=== PATIENT | female | born 1940 | race Caucasian/White ===

== ENCOUNTER 2016-10-11 12:14 | Outpatient (CLI) | payer MEDICARE, OTHER ==
--- NOTE | 2016-10-11 13:36 | Mammography Report ---
DIGITAL DIAGNOSTIC LEFT MAMMOGRAM: 10/11/2016 CLINICAL INDICATION: Possible developing density on screening. TECHNIQUE: Left true lateral and spot compression views. COMPARISON: 09/21/2016, 03/24/2015, 09/21/2012, 08/07/2011, 07/09/2010, 03/03/2009. FINDINGS: The left breast again demonstrates scattered fibroglandular densities. The density in que stion, in the left upper central breast, dissipates evenly on additional compression. No underlying mass lesion or architectural distortion is identified. IMPRESSION: NEGATIVE EXAMINATION. RECOMMENDATION: Routine annual screening unless otherwise clinically indicated. BI-RADS category 1, negative. STANDARD QUALIFYING STATEMENTS 1. This examination was reviewed with the aid of Computer-Aided Detection (CAD). 2. A negative or benign imaging report should not delay biopsy if clinically suspicious findings are present. Consider surgical consultation if warranted. More than 5% of cancers are not identified by i maging. 3. Dense breasts may obscure an underlying neoplasm. JOB #: [id number] EXT JOB #:[id number]
== END 2016-10-11 12:15 | disposition home or self-care (01) ==
LOC: DI 12:14
PROVIDERS: ATTEND Physician Assistant Medical
DX: R92.2 Inconclusive mammogram (principal)

== ENCOUNTER 2017-03-03 07:51 | Outpatient (CLI) | payer MEDICARE, OTHER ==
[2017-03-03 08:47] LABS: ALBUMIN/GLOBULIN RATIO 1.6 (1.0-2.2); BILIRUBIN,TOTAL 0.6 mg/dL (0.2-1.0); BUN - BLOOD UREA NITROGEN 16 mg/dL (6-20); CALCIUM 9.1 mg/dL (8.5-10.3); CARBON DIOXIDE - CO2 28 mmol/L (21-32); CHLORIDE 96 mmol/L (101-111); CHOL/HDL RATIO 2.6 (<4.4); CHOLESTEROL 191 mg/dL; CREATININE 0.7 mg/dL (0.4-1.0); GFR - MDRD 81 (>89); GLUCOSE 94 mg/dL (70-100); HDL CHOLESTEROL 74 mg/dL; LDL/HDL RATIO 1.4 (<4.4); POTASSIUM 3.8 mmol/L (3.5-5.0); SODIUM 132 mmol/L (135-145); TOTAL PROTEIN 7.2 g/dL (6.7-8.2); TRIGLYCERIDES 71 mg/dL; VLDL CHOLESTEROL 14 mg/dL
== END 2017-03-03 07:52 | disposition home or self-care (01) ==
LOC: LAB 07:51
PROVIDERS: ATTEND Physician Assistant Medical
DX: E78.5 Hyperlipidemia, unspecified (principal)
CPT/HCPCS: 36415; 80053; 80061

== ENCOUNTER 2018-03-14 07:36 | Outpatient (CLI) | payer MEDICARE, OTHER ==
[2018-03-14 07:55] LABS: BASOPHILS # (AUTO) 0.1 10^3/uL (0.0-0.1); BASOPHILS % (AUTO) 0.9 %; EOSINOPHILS # (AUTO) 0.3 10^3/uL (0.0-0.7); EOSINOPHILS % (AUTO) 5.2 %; HGB - HEMOGLOBIN 12.2 g/dL (12.0-16.0); LYMPHOCYTES # (AUTO) 1.2 10^3/uL (1.5-3.5); LYMPHOCYTES % (AUTO) 21.3 %; MEAN CORPUSCULAR HEMOGLOBIN 32.7 pg (27.0-31.0); MEAN CORPUSCULAR HGB CONC 34.1 g/dL (32.0-36.0); MEAN CORPUSCULAR VOLUME 95.9 fL (81.0-99.0); MEAN PLATELET VOLUME 8.9 fL (7.9-10.8); MONOCYTES # (AUTO) 0.4 10^3/uL (0.0-1.0); MONOCYTES % (AUTO) 7.6 %; NEUTROPHILS # (AUTO) 3.5 10^3/uL (1.5-6.6); PLT - PLATELET COUNT 203 10^3/uL (130-450); RED BLOOD COUNT 3.73 10^6/uL (4.20-5.40); RED CELL DISTRIBUTION WIDTH 12.5 % (12.0-15.0); WHITE BLOOD COUNT 5.4 x10^3/uL (4.8-10.8)
[2018-03-14 08:22] LABS: ALBUMIN 3.9 g/dL (3.2-5.5); ALBUMIN/GLOBULIN RATIO 1.3 (1.0-2.2); ALKALINE PHOSPHATASE 52 IU/L (42-121); ALT ALANINE AMINOTRANSFERASE 13 IU/L (10-60); AST ASPARTATE AMINOTRANSFERASE 19 IU/L (10-42); BILIRUBIN,TOTAL 0.5 mg/dL (0.2-1.0); BUN - BLOOD UREA NITROGEN 15 mg/dL (6-20); CALCIUM 8.8 mg/dL (8.5-10.3); CARBON DIOXIDE - CO2 27 mmol/L (21-32); CHLORIDE 95 mmol/L (101-111); CHOL/HDL RATIO 2.7 (<4.4); CHOLESTEROL 173 mg/dL; CREATININE 0.7 mg/dL (0.4-1.0); GFR - MDRD 81 (>89); GLUCOSE 95 mg/dL (70-100); HDL CHOLESTEROL 63 mg/dL; LDL CHOLESTEROL,CALCULATED 90 mg/dL; LDL/HDL RATIO 1.4 (<4.4); SODIUM 128 mmol/L (135-145); TOTAL PROTEIN 6.9 g/dL (6.7-8.2); VLDL CHOLESTEROL 20 mg/dL
== END 2018-03-14 07:37 | disposition home or self-care (01) ==
LOC: LAB 07:36
PROVIDERS: ATTEND Physician Assistant Medical
DX: E87.6 Hypokalemia (principal); E78.5 Hyperlipidemia, unspecified; I10 Essential (primary) hypertension
CPT/HCPCS: 36415; 80053; 80061; 83721; 85025

== ENCOUNTER 2018-04-06 14:55 | Outpatient (CLI) | payer MEDICARE, OTHER ==
--- NOTE | 2018-04-07 11:35 | DEXA Report ---
Procedure Date: 04/06/2018 Accession Number: [id number] / [id number] Procedure: DEX - Dexa Spine and/or Hip CPT Code: FULL RESULT: EXAM: Dexa Spine and/or Hip DATE: 04/06/2018 3:27 PM CLINICAL HISTORY: BONE DISEASE TECHNIQUE: Dual energy x-ray absorptiometry (DXA) was performed on a Dopplr System. Regions measured are the AP Spine, femoral neck, and if needed forearm. COMPARISON: None. In accordance with the International Society for Clinical Densitometry (ISCD) guidelines, data from previous exams may be reanalyzed using current recommendations and techniques. This is done to allow a more accurate basis for comparison with the current study. FINDINGS: The data for the lumbar spine is as follows: BMD (g/cm/cm) T-SCORE Z-SCORE REGION L1 1.072 -0.5 0.8 L2 1.137 -0.5 0.8 L3 1.150 -0.4 0.9 L4 1.220 0.2 1.5 TOTAL 1.152 -0.2 1.1 NOTE: All evaluable vertebrae are used for classification The data for the hip is as follows: BMD (g/cm/cm) T-SCORE Z-SCORE REGION Neck 0.826 -1.5 0.2 TOTAL 0.958 -0.4 1.2 NOTE: The femoral neck or total proximal femur, whichever is lowest, is used for classification. IMPRESSION: THE WHO CLASSIFICATION BASED ON THE INTERNATIONAL REFERENCE STANDARD IS NORMAL. THE FRACTURE RISK IS NOT INCREASED. RECOMMENDATION: Patients with diagnosis of osteoporosis or osteopenia should have regular bone mineral density assessment. For those eligible for Medicare, routine testing is allowed once every 2 years. Testing frequency can be increased for patients who have rapidly progressing disease or for those who are receiving medical therapy to restore bone mass. COMMENT: World Health Organization (WHO) definitions for osteoporosis and osteopenia: NORMAL BMD: T-score at -1.0 or higher, fracture risk is low OSTEOPENIA BMD: T-score between -1.0 and -2.5, fracture risk is increased. OSTEOPOROSIS BMD: T-score at -2.5 or lower, fracture risk is high. National Osteoporosis Foundation recommends: 1. Obtain adequate dietary calcium (at least 1200 mg per day) and vitamin D (400-800 international units per day). 2. Participate, as appropriate, in regular weightbearing and muscle-strengthening exercise. 3. Avoid tobacco use and reduce alcohol and caffeine intake. 4. For more detailed information see the website at www.NOF.org.
== END 2018-04-06 14:56 | disposition home or self-care (01) ==
LOC: DI 14:55
PROVIDERS: ATTEND Physician Assistant Medical
DX: M85.88 Other specified disorders of bone density and structure, other site (principal)
CPT/HCPCS: 77080

== ENCOUNTER 2018-04-06 14:56 | Outpatient (CLI) | payer MEDICARE, OTHER ==
--- NOTE | 2018-04-07 16:35 | Mammography Report ---
Procedure Date: 04/06/2018 Accession Number: [id number] / [id number] Procedure: KRISTINA - Screening Mammo Dig Bilat CPT Code: FULL RESULT: EXAM: Screening Mammo Dig Bilat DATE: 04/06/2018 3:30 PM CLINICAL HISTORY: 77-year-old female presents for screening mammogram. TECHNIQUE: Bilateral CC and MLO views were obtained. COMPARISON: 10/11/2016, 09/21/2016, 03/24/2015, 10/30/2013, 09/21/2012 FINDINGS: The breasts demonstrate scattered fibroglandular densities bilaterally. There are scattered benign calcifications. No suspicious masses, clustered microcalcifications, or regions of architectural distortion are identified. IMPRESSION: Benign findings RECOMMENDATION: Routine annual screening unless otherwise clinically indicated. BIRADS CATEGORY 2: Benign findings STANDARD QUALIFYING STATEMENTS: 1. This examination was reviewed with the aid of Computer-Aided Detection (CAD). 2. A negative or benign imaging report should not delay biopsy if clinically suspicious findings are present. Consider surgical consultation if warrented. More than 5% of cancers are not identified by imaging. 3. Dense breasts may obscure an underlying neoplasm.
== END 2018-04-06 14:57 | disposition home or self-care (01) ==
LOC: DI 14:56
PROVIDERS: ATTEND Physician Assistant Medical
DX: Z12.31 Encounter for screening mammogram for malignant neoplasm of breast (principal)
CPT/HCPCS: 77067

== ENCOUNTER 2019-03-23 07:40 | Outpatient (CLI) | payer MEDICARE, OTHER ==
[2019-03-23 08:16] LABS: BASOPHILS # (AUTO) 0.1 10^3/uL (0.0-0.1); BASOPHILS % (AUTO) 0.9 %; EOSINOPHILS # (AUTO) 0.2 10^3/uL (0.0-0.7); EOSINOPHILS % (AUTO) 3.7 %; HGB - HEMOGLOBIN 12.1 g/dL (12.0-16.0); LYMPHOCYTES # (AUTO) 1.1 10^3/uL (1.5-3.5); MEAN CORPUSCULAR HEMOGLOBIN 32.2 pg (27.0-31.0); MEAN CORPUSCULAR HGB CONC 34.1 g/dL (32.0-36.0); MEAN CORPUSCULAR VOLUME 94.4 fL (81.0-99.0); MONOCYTES # (AUTO) 0.5 10^3/uL (0.0-1.0); MONOCYTES % (AUTO) 8.2 %; NEUTROPHILS # (AUTO) 3.7 10^3/uL (1.5-6.6); NEUTROPHILS % (AUTO) 66.8 %; PLT - PLATELET COUNT 225 10^3/uL (130-450); RED BLOOD COUNT 3.76 10^6/uL (4.20-5.40); WHITE BLOOD COUNT 5.5 x10^3/uL (4.8-10.8)
[2019-03-23 08:43] LABS: ALBUMIN 4.3 g/dL (3.2-5.5); ALBUMIN/GLOBULIN RATIO 1.6 (1.0-2.2); ALKALINE PHOSPHATASE 56 IU/L (42-121); ALT ALANINE AMINOTRANSFERASE 12 IU/L (10-60); AST ASPARTATE AMINOTRANSFERASE 20 IU/L (10-42); BILIRUBIN,TOTAL 0.6 mg/dL (0.2-1.0); BUN - BLOOD UREA NITROGEN 16 mg/dL (6-20); CALCIUM 9.4 mg/dL (8.5-10.3); CARBON DIOXIDE - CO2 27 mmol/L (21-32); CHLORIDE 93 mmol/L (101-111); CHOLESTEROL 196 mg/dL; CREATININE 0.8 mg/dL (0.4-1.0); GFR - MDRD 69 (>89); GLUCOSE 103 mg/dL (70-100); HDL CHOLESTEROL 66 mg/dL; LDL CHOLESTEROL,CALCULATED 107 mg/dL; LDL/HDL RATIO 1.6 (<4.4); SODIUM 130 mmol/L (135-145); VLDL CHOLESTEROL 23 mg/dL
== END 2019-03-23 07:41 | disposition home or self-care (01) ==
LOC: LAB 07:40
PROVIDERS: ATTEND Physician Assistant Medical
DX: I10 Essential (primary) hypertension (principal); E78.5 Hyperlipidemia, unspecified
CPT/HCPCS: 36415; 80053; 80061; 83721; 85025

== ENCOUNTER 2019-04-11 10:10 | Outpatient (CLI) | payer MEDICARE, OTHER | END 2019-04-11 10:11 | disposition home or self-care (01) | LOC: DI 10:10 | PROVIDERS: ATTEND Physician Assistant Medical | DX: I48.91 Unspecified atrial fibrillation (principal); I08.1 Rheumatic disorders of both mitral and tricuspid valves; I11.9 Hypertensive heart disease without heart failure; I27.20 Pulmonary hypertension, unspecified | CPT/HCPCS: 93306 ==

== ENCOUNTER 2020-03-21 07:45 | Outpatient (CLI) | payer MEDICARE, OTHER ==
[2020-03-21 08:47] LABS: BASOPHILS # (AUTO) 0.1 10^3/uL (0.0-0.1); EOSINOPHILS # (AUTO) 0.2 10^3/uL (0.0-0.7); EOSINOPHILS % (AUTO) 3.4 %; HGB - HEMOGLOBIN 12.2 g/dL (12.0-16.0); LYMPHOCYTES % (AUTO) 20.3 %; MEAN CORPUSCULAR HEMOGLOBIN 32.3 pg (27.0-31.0); MEAN CORPUSCULAR HGB CONC 33.7 g/dL (32.0-36.0); MEAN CORPUSCULAR VOLUME 95.8 fL (81.0-99.0); MEAN PLATELET VOLUME 10.9 fL (7.9-10.8); MONOCYTES # (AUTO) 0.4 10^3/uL (0.0-1.0); NEUTROPHILS # (AUTO) 3.4 10^3/uL (1.5-6.6); NEUTROPHILS % (AUTO) 67.1 %; PLT - PLATELET COUNT 241 10^3/uL (130-450); RED BLOOD COUNT 3.78 10^6/uL (4.20-5.40); RED CELL DISTRIBUTION WIDTH 11.9 % (12.0-15.0)
[2020-03-21 09:01] LABS: ALBUMIN 4.4 g/dL (3.2-5.5); ALBUMIN/GLOBULIN RATIO 1.6 (1.0-2.2); ALKALINE PHOSPHATASE 58 IU/L (42-121); ALT ALANINE AMINOTRANSFERASE 16 IU/L (10-60); AST ASPARTATE AMINOTRANSFERASE 22 IU/L (10-42); BILIRUBIN,TOTAL 0.6 mg/dL (0.2-1.0); BUN - BLOOD UREA NITROGEN 15 mg/dL (6-20); CALCIUM 9.2 mg/dL (8.5-10.3); CARBON DIOXIDE - CO2 27 mmol/L (21-32); CHLORIDE 94 mmol/L (101-111); CHOL/HDL RATIO 2.4 (<4.4); CHOLESTEROL 184 mg/dL; CREATININE 0.9 mg/dL (0.4-1.0); GLUCOSE 101 mg/dL (70-100); HDL CHOLESTEROL 76 mg/dL; LDL CHOLESTEROL,CALCULATED 93 mg/dL; LDL/HDL RATIO 1.2 (<4.4); SODIUM 131 mmol/L (135-145); TOTAL PROTEIN 7.1 g/dL (6.7-8.2); VLDL CHOLESTEROL 15 mg/dL
== END 2020-03-21 07:46 | disposition home or self-care (01) ==
LOC: LAB 07:45
PROVIDERS: ATTEND Family Medicine
DX: I48.91 Unspecified atrial fibrillation (principal); E78.5 Hyperlipidemia, unspecified; M85.80 Other specified disorders of bone density and structure, unspecified site
CPT/HCPCS: 36415; 80053; 80061; 83721; 84443; 85025

== ENCOUNTER 2020-09-23 06:05 | Emergency (ER) | payer MEDICARE, OTHER ==
--- NOTE | 2020-09-23 07:00 | ED Physician Documentation ---
PD HPI SYNCOPE - Stated complaint Stated Complaint: NAUSEA, LOW BLOOD PRESSURE - Chief complaint Chief Complaint: General - History obtained from History obtained from: Patient - History of Present Illness Timing - onset: Today Duration: Seconds, Minutes Preceding symptoms: Abdominal pain, Nausea / vomiting, Light headed, Generalized weakness. No: Headache, Palpitations, Dyspnea Associated symptoms: Nausea / vomiting, Abdominal pain (she was eating breakfast and noted onset of lower abd cramp, had some nasuea and single diarrheal movement. [place] lightheaded briefly then better. Her encouiraged her to get evaluated to ensure not heart related.) Contributing factors: Noxious stimulae (abd cramp and nausea). No: Recent med change, Decreased PO intake Injury occurred: No: Fell, Head injury, Neck injury Review of Systems Constitutional: denies: Fever, Chills Nose: denies: Rhinorrhea / runny nose, Congestion Throat: denies: Sore throat Cardiac: denies: Chest pain / pressure, Palpitations Respiratory: denies: Dyspnea, Cough GI: denies: Hematemesis, Bloody / black stool Musculoskeletal: denies: Neck pain, Back pain, Extremity swelling Neurologic: reports: Generalized weakness, Near syncope. 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 HEENT: Chronic hearing loss Psych: None Musculoskeletal: None Derm: None - Past Surgical History Past Surgical History: No - Present Medications Home Medications: Ambulatory Orders Medication Instructions Recorded Confirmed Apixaban [Eliquis] 09/23/20 Hydrochlorothiazide 09/23/20 09/23/20 Lisinopril [Zestril] 09/23/20 Simvastatin [Zocor] 09/23/20 diltiaZEM [Cardizem] 09/23/20 - Allergies Allergies/Adverse Reactions: Allergies Allergy/AdvReac Type Severity Reaction Status Date / Time telmisartan [From Micardis] Allergy Unknown Verified 09/23/20 08:20 - Social History Does the pt smoke?: No Smoking Status: Never smoker Does the pt drink ETOH?: Yes Does the pt have substance abuse?: No - Immunizations Immunizations are current?: Yes PD ED PE NORMAL - Vitals Vital signs reviewed: Yes - General General: Alert and oriented X 3, No acute distress, Well developed/nourished - HEENT HEENT: Moist mucous membranes, Pharynx benign - Neck Neck: Supple, no meningeal sign, No adenopathy - Cardiac Cardiac: RRR, No murmur - Respiratory Respiratory: Clear bilaterally - Abdomen Abdomen: Normal bowel sounds, Soft, Non tender, Non distended - Derm Derm: Normal color, Warm and dry - Extremities Extremities: No tenderness to palpate, Normal ROM s pain, No edema, No calf tenderness / cord - Neuro Neuro: Alert and oriented X 3, No motor deficit, Normal speech Eye Opening: Spontaneous Motor: Obeys Commands Verbal: Oriented GCS Score: 15 Results - Vitals Vitals: Vital Signs - 24 hr 09/23/20 09/23/20 09/23/20 06:11 06:50 07:45 Temperature 36.5 C 36.5 C Heart Rate 70 69 66 Respiratory 16 19 14 Rate Blood Pressure 147/65 H 152/63 H 140/60 H O2 Saturation 100 100 100 Oxygen O2 Source Room air - EKG (time done) 06:38 Rate: Rate (enter#) (64) Rhythm: NSR [place]: Normal Intervals: Normal [place] QRS: Normal Ischemia: Normal ST segments, Other (PVCs noted). No: ST elevation c/w ischemia, ST depression - Labs Labs: Laboratory Tests 09/23/20 09/23/20 09/23/20 06:46 06:46 06:46 WBC 7.3 RBC 3.82 L Hgb 12.4 Hct 37.9 MCV 99.2 H MCH 32.5 H MCHC 32.7 RDW 11.9 L Plt Count 235 MPV 10.8 Neut # (Auto) 5.6 Lymph # (Auto) 0.9 L [place] # (Auto) 0.5 Eos # (Auto) 0.2 Baso # (Auto) 0.1 Absolute Nucleated RBC 0.00 Nucleated RBC % 0.0 Sodium 132 L Potassium 3.9 Chloride 97 L Carbon Dioxide 23 Anion Gap 12.0 BUN 26 H Creatinine 1.1 H Estimated GFR (MDRD) 48 L Glucose 114 H Calcium 9.2 Troponin I High Sens 6.1 PD MEDICAL DECISION MAKING - ED course Complexity details: considered differential (sounds vasovagal from intestinal symptoms. Improved promptly and feels okay now with normal ECG and Trop. ), d/w patient Departure - Departure Disposition: 01 Home, Self Care Clinical Impression: Near syncope Condition: Stable Record reviewed to determine appropriate education?: Yes Instructions: ED Near Syncope Vasovagal Follow-Up: Pauline Quiroz PA-C [Primary Care Provider] - Comments: Your EKG and heart monitor and basic blood tests appear normal. I presume you had a transient drop in your blood pressure related to the nausea and abdominal cramps/diarrhea. You seem well at this time. Recheck if repeated episodes or any further symptoms develop. Discharge Date/Time: 09/23/20 07:50
[2020-09-23 07:15] LABS: CALCIUM 9.2 mg/dL (8.5-10.3); CREATININE 1.1 mg/dL (0.4-1.0); POTASSIUM 3.9 mmol/L (3.5-5.0)
[2020-09-23 07:18] LABS: BASOPHILS # (AUTO) 0.1 10^3/uL (0.0-0.1); BASOPHILS % (AUTO) 0.8 %; EOSINOPHILS # (AUTO) 0.2 10^3/uL (0.0-0.7); EOSINOPHILS % (AUTO) 3.1 %; HCT - HEMATOCRIT 37.9 % (37.0-47.0); HGB - HEMOGLOBIN 12.4 g/dL (12.0-16.0); LYMPHOCYTES # (AUTO) 0.9 10^3/uL (1.5-3.5); LYMPHOCYTES % (AUTO) 11.6 %; MEAN CORPUSCULAR HEMOGLOBIN 32.5 pg (27.0-31.0); MEAN CORPUSCULAR HGB CONC 32.7 g/dL (32.0-36.0); MEAN CORPUSCULAR VOLUME 99.2 fL (81.0-99.0); MEAN PLATELET VOLUME 10.8 fL (7.9-10.8); MONOCYTES # (AUTO) 0.5 10^3/uL (0.0-1.0); MONOCYTES % (AUTO) 7.2 %; NEUTROPHILS # (AUTO) 5.6 10^3/uL (1.5-6.6); NEUTROPHILS % (AUTO) 76.9 %; PLT - PLATELET COUNT 235 10^3/uL (130-450); RED BLOOD COUNT 3.82 10^6/uL (4.20-5.40); RED CELL DISTRIBUTION WIDTH 11.9 % (12.0-15.0); WHITE BLOOD COUNT 7.3 x10^3/uL (4.8-10.8)
[2020-09-23 07:45] VITALS: BP 140/60
== END 2020-09-23 07:50 | disposition home or self-care (01) ==
LOC: ED 06:05
DX: R55 Syncope and collapse (principal); R11.2 Nausea with vomiting, unspecified; R19.7 Diarrhea, unspecified; I49.3 Ventricular premature depolarization; I10 Essential (primary) hypertension; Z79.01 Long term (current) use of anticoagulants
CPT/HCPCS: 36415; 80048; 84484; 85025; 93005; 99284

== ENCOUNTER 2020-09-30 15:09 | Outpatient (CLI) | payer MEDICARE, OTHER ==
[2020-09-30 18:57] LABS: BASOPHILS # (AUTO) 0.1 10^3/uL (0.0-0.1); BASOPHILS % (AUTO) 0.9 %; EOSINOPHILS # (AUTO) 0.1 10^3/uL (0.0-0.7); EOSINOPHILS % (AUTO) 1.9 %; LYMPHOCYTES # (AUTO) 1.2 10^3/uL (1.5-3.5); LYMPHOCYTES % (AUTO) 17.7 %; MEAN CORPUSCULAR HEMOGLOBIN 32.1 pg (27.0-31.0); MEAN CORPUSCULAR HGB CONC 32.8 g/dL (32.0-36.0); MEAN CORPUSCULAR VOLUME 97.9 fL (81.0-99.0); MEAN PLATELET VOLUME 11.1 fL (7.9-10.8); MONOCYTES # (AUTO) 0.5 10^3/uL (0.0-1.0); NEUTROPHILS # (AUTO) 4.8 10^3/uL (1.5-6.6); NEUTROPHILS % (AUTO) 71.2 %; PLT - PLATELET COUNT 260 10^3/uL (130-450); RED BLOOD COUNT 3.74 10^6/uL (4.20-5.40); WHITE BLOOD COUNT 6.8 x10^3/uL (4.8-10.8)
[2020-09-30 19:21] LABS: ALBUMIN 4.8 g/dL (3.2-5.5); ALBUMIN/GLOBULIN RATIO 1.5 (1.0-2.2); BILIRUBIN,TOTAL 0.4 mg/dL (0.2-1.0); CALCIUM 9.8 mg/dL (8.5-10.3); CREATININE 0.8 mg/dL (0.4-1.0); TOTAL PROTEIN 7.9 g/dL (6.7-8.2)
== END 2020-09-30 23:59 | disposition home or self-care (01) ==
LOC: LAB.WCP 15:09
PROVIDERS: ATTEND Family Medicine
DX: I10 Essential (primary) hypertension (principal); K62.5 Hemorrhage of anus and rectum
CPT/HCPCS: 36415; 80053; 85025

== ENCOUNTER 2021-03-20 07:33 | Outpatient (CLI) | payer MEDICARE, OTHER ==
[2021-03-20 08:15] LABS: CHOL/HDL RATIO 2.8 (<4.4); CHOLESTEROL 198 mg/dL; HDL CHOLESTEROL 70 mg/dL; LDL CHOLESTEROL,CALCULATED 105 mg/dL; LDL/HDL RATIO 1.5 (<4.4); TRIGLYCERIDES 114 mg/dL; VLDL CHOLESTEROL 23 mg/dL
== END 2021-03-20 07:34 | disposition home or self-care (01) ==
LOC: LAB 07:33
PROVIDERS: ATTEND Nurse Practitioner Family
DX: E78.5 Hyperlipidemia, unspecified (principal)
CPT/HCPCS: 36415; 80061; 83721

== ENCOUNTER 2021-04-01 07:46 | Outpatient (CLI) | payer MEDICARE, OTHER ==
[2021-04-01 08:01] LABS: BASOPHILS # (AUTO) 0.1 10^3/uL (0.0-0.1); BASOPHILS % (AUTO) 0.8 %; EOSINOPHILS # (AUTO) 0.2 10^3/uL (0.0-0.7); EOSINOPHILS % (AUTO) 3.5 %; HCT - HEMATOCRIT 35.5 % (37.0-47.0); HGB - HEMOGLOBIN 12.2 g/dL (12.0-16.0); LYMPHOCYTES # (AUTO) 1.1 10^3/uL (1.5-3.5); LYMPHOCYTES % (AUTO) 18.1 %; MEAN CORPUSCULAR HEMOGLOBIN 32.4 pg (27.0-31.0); MEAN CORPUSCULAR HGB CONC 34.4 g/dL (32.0-36.0); MEAN CORPUSCULAR VOLUME 94.2 fL (81.0-99.0); MEAN PLATELET VOLUME 10.5 fL (7.9-10.8); MONOCYTES # (AUTO) 0.6 10^3/uL (0.0-1.0); MONOCYTES % (AUTO) 9.5 %; NEUTROPHILS # (AUTO) 4.1 10^3/uL (1.5-6.6); NEUTROPHILS % (AUTO) 67.9 %; PLT - PLATELET COUNT 225 10^3/uL (130-450); RED BLOOD COUNT 3.77 10^6/uL (4.20-5.40); RED CELL DISTRIBUTION WIDTH 11.9 % (12.0-15.0)
[2021-04-01 08:15] LABS: ALBUMIN 4.5 g/dL (3.2-5.5); ALBUMIN/GLOBULIN RATIO 1.5 (1.0-2.2); BILIRUBIN,TOTAL 0.8 mg/dL (0.2-1.0); CALCIUM 9.4 mg/dL (8.5-10.3); CREATININE 0.8 mg/dL (0.4-1.0); POTASSIUM 4.4 mmol/L (3.5-5.0); TOTAL PROTEIN 7.5 g/dL (6.7-8.2)
[2021-04-01 08:32] LABS: THYROID STIMULATING HORMONE 3.32 uIU/mL (0.34-5.60)
== END 2021-04-01 07:47 | disposition home or self-care (01) ==
LOC: LAB 07:46
PROVIDERS: ATTEND Physician Assistant Medical
DX: I48.91 Unspecified atrial fibrillation (principal); I10 Essential (primary) hypertension
CPT/HCPCS: 36415; 80053; 82306; 82607; 84443; 85025

== ENCOUNTER 2021-07-29 07:44 | Outpatient (CLI) | payer MEDICARE, OTHER | END 2021-07-29 07:45 | disposition critical access hospital (66) | LOC: EMS 07:44 | DX: R42 Dizziness and giddiness (principal); M25.531 Pain in right wrist; W18.39XA Other fall on same level, initial encounter; Y93.E1 Activity, personal bathing and showering; Y92.002 Bathroom of unspecified non-institutional (private) residence as the place of occurrence of the external cause | CPT/HCPCS: A0425; A0429 ==

== ENCOUNTER 2021-07-29 07:53 | Emergency (ER) | payer MEDICARE, OTHER ==
--- NOTE | 2021-07-29 08:54 | XRAY Report ---
PROCEDURE: Wrist 3 View RT INDICATIONS: fall/injury TECHNIQUE: 3 views of the wrist were acquired. COMPARISON: No FINDINGS: Bones: Impacted, minimally displaced, transverse fracture across the distal radial metaphysis. There may be extension to the articular surface. Small ulnar styloid fracture fragment. Widening of the sca pholunate interval.. Arthritic joint space loss at the radiocarpal articulation. Arthritic changes in cidentally noted at the second MCP joint. No suspicious bony lesions. Scaphoid view: Not performed Soft tissues: No suspicious soft tissue calcifications. IMPRESSION: Mildly impacted, minimally displaced transverse distal radius fracture with intra-articular extension . Slight scapholunate interval widening suggesting scapholunate ligament injury. Small ulnar styloid fracture. Reviewed by: Jolie Rich MD on 07/29/2021 8:53 AM PDT Approved by: Jolie Rich MD on 07/29/2021 8:53 AM PDT Station ID: [id number]
[2021-07-29] MEDS ORDERED: SODIUM CHLORIDE 0.9% 1,000 ML IV STA (09:26)
--- NOTE | 2021-07-29 11:11 | ED Physician Documentation ---
History of Present Illness - Stated complaint Stated Complaint: NEAR SYNCOPE - Chief complaint Chief Complaint: Neuro - History obtained from History obtained from: Patient, EMS - Additonal information Additional information: Patient comes emergency department chief complaint of near syncope and fall. Patient states that she has not been sleeping very well lately and has not had enough to drink in the last couple of days. She states that while she was in the shower, she began to feel a little bit lightheaded, so she turned up the shower and sun the end of the tub. She states the feeling of lightheadedness got stronger and stronger until she decided to get on the floor and lay down. She states she put her right hand out to catch herself as she scooted toward the floor, but slid off the edge of the tub and caught herself hard on the hand. She has some pain and swelling in it now., At the wrist. Patient states she felt better after laying on floor, but cannot get herself up because of the wrist. For this reason, she activated EMS. Patient denies chest pain or shortness of breath. She has a history of high blood pressure and that is it. She denies any other symptoms besides wrist pain and swelling now. No nausea or vomiting. No lightheadedness. No headache. No focal neurologic deficits. No spinal or hip pain. Patient did not hit her head or fully lose consciousness. Review of Systems Ten Systems: 10 systems reviewed and negative Constitutional: reports: Reviewed and negative Eyes: reports: Reviewed and negative Ears: reports: Reviewed and negative Nose: reports: Reviewed and negative Throat: reports: Reviewed and negative Cardiac: reports: Reviewed and negative Respiratory: reports: Reviewed and negative GI: reports: Reviewed and negative : reports: Reviewed and negative Skin: reports: Reviewed and negative Musculoskeletal: reports: Extremity pain, Joint pain Neurologic: reports: Reviewed and negative Psychiatric: reports: Reviewed and negative Endocrine: reports: Reviewed and negative Immunocompromised: reports: Reviewed and negative PD PAST MEDICAL HISTORY - Past Medical History Past Medical History: Yes Cardiovascular: Hypertension, High cholesterol, Atrial fibrillation Respiratory: None Neuro: None Endocrine/Autoimmune: None GI: None 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 HEENT: Chronic hearing loss Psych: None Musculoskeletal: None Derm: None - Past Surgical History Past Surgical History: No - Present Medications Home Medications: Ambulatory Orders Medication Instructions Recorded Confirmed Apixaban [Eliquis] 1 tab ORAL BID 09/23/20 Lisinopril [Zestril] 1 tablet ORAL DAILY 09/23/20 Simvastatin [Zocor] 1 tablet ORAL DAILY 09/23/20 diltiaZEM [Cardizem] 1 tablet ORAL DAILY 09/23/20 hydroCHLOROthiazide 1 tablet ORAL DAILY 09/23/20 09/23/20 [Hydrochlorothiazide] HYDROcod/ACETAM 5/325 [[place] 5/325] 1 - 2 tablet PO Q6H PRN #14 tablet 07/29/21 Ondansetron Odt [Zofran] 4 mg TL Q6H PRN #10 tablet 07/29/21 - Allergies Allergies/Adverse Reactions: Allergies Allergy/AdvReac Type Severity Reaction Status Date / Time telmisartan [From Micardis] Allergy Unknown Verified 07/29/21 08:05 - Social History Does the pt smoke?: No Smoking Status: Never smoker Does the pt drink ETOH?: Yes Does the pt have substance abuse?: No - Immunizations Immunizations are current?: Yes PD ED PE NORMAL - Vitals Vital signs reviewed: Yes - General General: Alert and oriented X 3, No acute distress, Well developed/nourished - HEENT HEENT: Atraumatic, PERRL, EOMI, Moist mucous membranes - Neck Neck: Supple, no meningeal sign, No bony TTP - Cardiac Cardiac: RRR, No murmur, Strong equal pulses - Respiratory Respiratory: No respiratory distress, Clear bilaterally - Abdomen Abdomen: Soft, Non tender, Non distended - Back Back: No spinal TTP - Derm Derm: Normal color, Warm and dry, No rash - Extremities Extremities: No deformity, Other (Moderate edema over radial aspect of right wrist. Tenderness palpation with mildly limited range of motion secondary to pain. No deformity.) - Neuro Neuro: Alert and oriented X 3, assistant account manager 2-12 intact, No motor deficit, No sensory deficit, Normal speech - Psych Psych: Normal mood, Normal affect Results - Vitals Vitals: Oxygen O2 Source Room air - Rads (name of study) R wrist XR Radiology: Final report received, EMP read indepedently, See rad report PD MEDICAL DECISION MAKING - ED course Complexity details: reviewed results, re-evaluated patient, considered differential, d/w patient ED course: Patient was worked up with labs and EKG, which were unremarkable. Her x-ray of the right wrist showed an intracuticular distal radial fracture with minimal displacement. Patient was placed in a sugar tong splint. I attempted to get a hold of Dr. Vargas while the patient was in the emergency department, but he was stuck in a long OR case. Plan will be to talk to him About the patient and have his office set up follow-up with her. Update: I was able to speak with Dr. Vargas after pt's departure, and he will have his office call her and set up a follow-up appt. He was able to view her x-rays while we spoke. Departure - Departure Disposition: 01 Home, Self Care Clinical Impression: Near syncope Distal radius fracture, right Qualifiers: Encounter type: initial encounter Fracture type: closed Fracture morphology: unspecified fracture morphology Qualified Code(s): S52.501A - Unspecified fracture of the lower end of right radius, initial encounter for closed fracture Condition: Stable Instructions: Distal Radius Fx Follow-Up: Jose Vargas MD [Provider Admit Priv/Credential] - Prescriptions: HYDROcod/ACETAM 5/325 [[place] 5/325] 1 - 2 tablet PO Q6H PRN #14 tablet PRN Reason: Pain Ondansetron Odt [Zofran] 4 mg TL Q6H PRN #10 tablet PRN Reason: Nausea / Vomiting Comments: Your x-ray shows Some cracks in the radius bone of the right forearm at the wrist joint. You will need to follow-up with orthopedics fairly soon to determine whether this needs surgical repair, which most likely will. It is fairly well aligned at this point, and for now, we have immobilized your forearm with the splint. Please call Dr. Vargas's office first thing when you get home to set up a follow-up appointment. He has been in a long operating room case and unable to discuss your case yet but as soon as he is done, I will speak with him and have him touch base with his office so you can be seen soon. A prescription for pain and nausea medication has been transmitted electronically to [facility] in [place]. You may fill this to help with the pain. If your pain is not very bad, you are also free to use ibuprofen and Tylenol instead. Please keep the splint on until you follow-up with orthopedics. Discharge Date/Time: 07/29/21 11:36
[2021-07-29 11:36] VITALS: BP 148/64
== END 2021-07-29 11:36 | disposition home or self-care (01) ==
LOC: EDUNIT# → ED 07:53
DX: S52.571A Other intraarticular fracture of lower end of right radius, initial encounter for closed fracture (principal); W18.2XXA Fall in (into) shower or empty bathtub, initial encounter; I10 Essential (primary) hypertension; I48.91 Unspecified atrial fibrillation; Z79.01 Long term (current) use of anticoagulants
CPT/HCPCS: 99282; 99283

== ENCOUNTER 2021-09-15 13:30 | Outpatient (CLI) | payer MEDICARE, OTHER ==
--- NOTE | 2021-09-15 17:26 | XRAY Report ---
PROCEDURE: Wrist 3 View RT INDICATIONS: COLLES FX OF R RADIUS TECHNIQUE: 3 views of the wrist were acquired. COMPARISON: X-ray right wrist, 07/29/2021. FINDINGS: Bones: There is a comminuted fracturing of distal radial metaphysis with impaction. Mild widening of scapholunate interval appears unchanged. Ulnar styloid fracture is present. There are multiple small intra-articular bodies at the radiocarpal joint. Suspect old radial styloid fracture. No suspicious bony lesions. Moderate degenerative joint disease at the radiocarpal joint, triscaphe joint and firs t carpometacarpal joint. Soft tissues: No suspicious soft tissue calcifications. IMPRESSION: 1. Comminuted distal radial metaphyseal fracture with impaction. The alignment is unchanged. 2. Mild widening of scapholunate interval suspicious for ligamentous injuries. 3. Ulnar styloid fracture. Reviewed by: Aminta Villeda MD on 09/15/2021 5:25 PM PST Approved by: Aminta Vilelda MD on 09/15/2021 5:25 PM PST Station ID: [id number]
== END 2021-09-15 23:59 | disposition home or self-care (01) ==
LOC: DI.N 13:30
PROVIDERS: ATTEND Physician Assistant
DX: S52.531A Colles' fracture of right radius, initial encounter for closed fracture (principal); S52.611A Displaced fracture of right ulna styloid process, initial encounter for closed fracture

== ENCOUNTER 2021-09-16 08:00 | Outpatient (CLI) | payer MEDICARE, OTHER ==
[2021-09-16 09:48] LABS: BASOPHILS # (AUTO) 0.1 10^3/uL (0.0-0.1); BASOPHILS % (AUTO) 0.9 %; EOSINOPHILS # (AUTO) 0.1 10^3/uL (0.0-0.7); EOSINOPHILS % (AUTO) 2.2 %; HCT - HEMATOCRIT 34.4 % (37.0-47.0); HGB - HEMOGLOBIN 11.4 g/dL (12.0-16.0); LYMPHOCYTES # (AUTO) 1.1 10^3/uL (1.5-3.5); LYMPHOCYTES % (AUTO) 17.9 %; MEAN CORPUSCULAR HEMOGLOBIN 32.5 pg (27.0-31.0); MEAN CORPUSCULAR HGB CONC 33.1 g/dL (32.0-36.0); MEAN PLATELET VOLUME 9.9 fL (7.9-10.8); MONOCYTES # (AUTO) 0.5 10^3/uL (0.0-1.0); MONOCYTES % (AUTO) 7.7 %; NEUTROPHILS # (AUTO) 4.5 10^3/uL (1.5-6.6); PLT - PLATELET COUNT 259 10^3/uL (130-450); RED BLOOD COUNT 3.51 10^6/uL (4.20-5.40); RED CELL DISTRIBUTION WIDTH 12.2 % (12.0-15.0); WHITE BLOOD COUNT 6.4 x10^3/uL (4.8-10.8)
[2021-09-16 09:58] LABS: ALBUMIN 4.5 g/dL (3.2-5.5); ALBUMIN/GLOBULIN RATIO 1.6 (1.0-2.2); BILIRUBIN,TOTAL 0.5 mg/dL (0.2-1.0); CALCIUM 9.3 mg/dL (8.5-10.3); CREATININE 0.8 mg/dL (0.4-1.0); POTASSIUM 3.8 mmol/L (3.5-5.0); TOTAL PROTEIN 7.4 g/dL (6.7-8.2)
[2021-09-16 10:15] LABS: THYROID STIMULATING HORMONE 2.51 uIU/mL (0.34-5.60)
== END 2021-09-16 23:59 ==
LOC: LAB 08:00
PROVIDERS: ATTEND Physician Assistant Medical
DX: I10 Essential (primary) hypertension (principal); Z79.899 Other long term (current) drug therapy
CPT/HCPCS: 36415; 80053; 84443; 85025

== ENCOUNTER 2021-10-22 09:56 | Outpatient (CLI) | payer MEDICARE, OTHER ==
[2021-10-22 10:11] LABS: BASOPHILS # (AUTO) 0.1 10^3/uL (0.0-0.1); BASOPHILS % (AUTO) 0.9 %; EOSINOPHILS # (AUTO) 0.2 10^3/uL (0.0-0.7); EOSINOPHILS % (AUTO) 3.1 %; HCT - HEMATOCRIT 36.8 % (37.0-47.0); HGB - HEMOGLOBIN 12.6 g/dL (12.0-16.0); LYMPHOCYTES % (AUTO) 14.3 %; MEAN CORPUSCULAR HEMOGLOBIN 33.1 pg (27.0-31.0); MEAN CORPUSCULAR HGB CONC 34.2 g/dL (32.0-36.0); MEAN CORPUSCULAR VOLUME 96.6 fL (81.0-99.0); MEAN PLATELET VOLUME 10.1 fL (7.9-10.8); MONOCYTES # (AUTO) 0.7 10^3/uL (0.0-1.0); MONOCYTES % (AUTO) 10.3 %; NEUTROPHILS # (AUTO) 4.8 10^3/uL (1.5-6.6); NEUTROPHILS % (AUTO) 71.1 %; PLT - PLATELET COUNT 242 10^3/uL (130-450); RED BLOOD COUNT 3.81 10^6/uL (4.20-5.40); RED CELL DISTRIBUTION WIDTH 11.9 % (12.0-15.0); WHITE BLOOD COUNT 6.7 x10^3/uL (4.8-10.8)
[2021-10-22 10:31] LABS: % IRON SATURATION 19 % (20-50); IRON 91 ug/dL (28-170); TOTAL IRON BINDING CAPACITY 472 ug/dL (250-450); TRANSFERRIN 337 mg/dL (192-382)
[2021-10-22 10:48] LABS: FERRITIN 25.2 ng/mL (11.0-306.8)
[2021-10-22 10:51] LABS: FOLATE 10.8 ng/mL (5.90 - >24.8)
== END 2021-10-22 09:57 | disposition home or self-care (01) ==
LOC: LAB 09:56
PROVIDERS: ATTEND Physician Assistant Medical
DX: D64.9 Anemia, unspecified (principal)
CPT/HCPCS: 36415; 82607; 82728; 82746; 83540; 84466; 85025

== ENCOUNTER 2022-01-20 09:17 | Outpatient (CLI) | payer MEDICARE, OTHER ==
[2022-01-20 09:29] LABS: BASOPHILS % (AUTO) 0.7 %; EOSINOPHILS # (AUTO) 0.2 10^3/uL (0.0-0.7); EOSINOPHILS % (AUTO) 2.7 %; HCT - HEMATOCRIT 32.9 % (37.0-47.0); HGB - HEMOGLOBIN 11.1 g/dL (12.0-16.0); LYMPHOCYTES # (AUTO) 1.1 10^3/uL (1.5-3.5); LYMPHOCYTES % (AUTO) 18.1 %; MEAN CORPUSCULAR HEMOGLOBIN 32.6 pg (27.0-31.0); MEAN CORPUSCULAR HGB CONC 33.7 g/dL (32.0-36.0); MEAN CORPUSCULAR VOLUME 96.5 fL (81.0-99.0); MEAN PLATELET VOLUME 10.1 fL (7.9-10.8); MONOCYTES # (AUTO) 0.6 10^3/uL (0.0-1.0); MONOCYTES % (AUTO) 10.4 %; NEUTROPHILS % (AUTO) 67.9 %; PLT - PLATELET COUNT 235 10^3/uL (130-450); RED BLOOD COUNT 3.41 10^6/uL (4.20-5.40); RED CELL DISTRIBUTION WIDTH 11.9 % (12.0-15.0); WHITE BLOOD COUNT 5.9 x10^3/uL (4.8-10.8)
[2022-01-20 10:08] LABS: % IRON SATURATION 18 % (20-50); IRON 77 ug/dL (28-170); TOTAL IRON BINDING CAPACITY 431 ug/dL (250-450); TRANSFERRIN 308 mg/dL (192-382)
== END 2022-01-20 09:18 | disposition home or self-care (01) ==
LOC: LAB 09:17
PROVIDERS: ATTEND Physician Assistant Medical
DX: D64.9 Anemia, unspecified (principal)
CPT/HCPCS: 36415; 83540; 84466; 85025

== ENCOUNTER 2022-01-29 08:00 | Outpatient (CLI) | payer MEDICARE, OTHER ==
[2022-01-29 18:13] LABS: FECAL OCCULT BLOOD (FIT) NEGATIVE (NEGATIVE)
== END 2022-01-29 23:59 | disposition home or self-care (01) ==
LOC: LAB.N 08:00
PROVIDERS: ATTEND Physician Assistant Medical
DX: D64.9 Anemia, unspecified (principal)
CPT/HCPCS: 82274

== ENCOUNTER 2022-03-16 07:51 | Outpatient (CLI) | payer MEDICARE, OTHER ==
[2022-03-16 08:12] LABS: BASOPHILS # (AUTO) 0.1 10^3/uL (0.0-0.1); BASOPHILS % (AUTO) 0.9 %; EOSINOPHILS # (AUTO) 0.2 10^3/uL (0.0-0.7); HGB - HEMOGLOBIN 11.5 g/dL (12.0-16.0); LYMPHOCYTES # (AUTO) 1.1 10^3/uL (1.5-3.5); LYMPHOCYTES % (AUTO) 18.4 %; MEAN CORPUSCULAR HEMOGLOBIN 32.4 pg (27.0-31.0); MEAN CORPUSCULAR HGB CONC 33.8 g/dL (32.0-36.0); MEAN CORPUSCULAR VOLUME 95.8 fL (81.0-99.0); MEAN PLATELET VOLUME 9.6 fL (7.9-10.8); MONOCYTES # (AUTO) 0.5 10^3/uL (0.0-1.0); MONOCYTES % (AUTO) 9.1 %; NEUTROPHILS # (AUTO) 3.9 10^3/uL (1.5-6.6); NEUTROPHILS % (AUTO) 68.2 %; PLT - PLATELET COUNT 243 10^3/uL (130-450); RED BLOOD COUNT 3.55 10^6/uL (4.20-5.40); RED CELL DISTRIBUTION WIDTH 11.7 % (12.0-15.0); WHITE BLOOD COUNT 5.7 x10^3/uL (4.8-10.8)
[2022-03-16 08:30] LABS: ALBUMIN 4.3 g/dL (3.2-5.5); ALBUMIN/GLOBULIN RATIO 1.4 (1.0-2.2); ALKALINE PHOSPHATASE 58 IU/L (42-121); ALT ALANINE AMINOTRANSFERASE 13 IU/L (10-60); AST ASPARTATE AMINOTRANSFERASE 19 IU/L (10-42); BILIRUBIN,TOTAL 0.6 mg/dL (0.2-1.0); BUN - BLOOD UREA NITROGEN 19 mg/dL (6-20); CALCIUM 9.1 mg/dL (8.5-10.3); CARBON DIOXIDE - CO2 28 mmol/L (21-32); CHLORIDE 91 mmol/L (101-111); CHOL/HDL RATIO 2.9 (<4.4); CHOLESTEROL 180 mg/dL; CREATININE 0.8 mg/dL (0.4-1.0); GFR - MDRD 69 (>89); GLUCOSE 98 mg/dL (70-100); HDL CHOLESTEROL 63 mg/dL; LDL CHOLESTEROL,CALCULATED 91 mg/dL; LDL/HDL RATIO 1.4 (<4.4); POTASSIUM 4.3 mmol/L (3.5-5.0); SODIUM 128 mmol/L (135-145); TOTAL PROTEIN 7.4 g/dL (6.7-8.2); TRIGLYCERIDES 131 mg/dL; VLDL CHOLESTEROL 26 mg/dL
== END 2022-03-16 07:52 | disposition home or self-care (01) ==
LOC: LAB 07:51
PROVIDERS: ATTEND Physician Assistant Medical
DX: E78.5 Hyperlipidemia, unspecified (principal); D64.9 Anemia, unspecified
CPT/HCPCS: 36415; 80053; 80061; 83721; 85025

== ENCOUNTER 2022-09-02 08:00 | Outpatient (CLI) | payer MEDICARE, OTHER ==
[2022-09-02 12:28] LABS: BASOPHILS % (AUTO) 0.2 %; EOSINOPHILS # (AUTO) 0.1 10^3/uL (0.0-0.7); EOSINOPHILS % (AUTO) 0.8 %; HCT - HEMATOCRIT 38.4 % (37.0-47.0); HGB - HEMOGLOBIN 13.2 g/dL (12.0-16.0); LYMPHOCYTES # (AUTO) 0.8 10^3/uL (1.5-3.5); LYMPHOCYTES % (AUTO) 8.4 %; MEAN CORPUSCULAR HEMOGLOBIN 32.1 pg (27.0-31.0); MEAN CORPUSCULAR HGB CONC 34.4 g/dL (32.0-36.0); MEAN CORPUSCULAR VOLUME 93.4 fL (81.0-99.0); MEAN PLATELET VOLUME 10.8 fL (7.9-10.8); MONOCYTES # (AUTO) 0.8 10^3/uL (0.0-1.0); MONOCYTES % (AUTO) 8.8 %; NEUTROPHILS # (AUTO) 7.2 10^3/uL (1.5-6.6); NEUTROPHILS % (AUTO) 81.6 %; PLT - PLATELET COUNT 299 10^3/uL (130-450); RED BLOOD COUNT 4.11 10^6/uL (4.20-5.40); RED CELL DISTRIBUTION WIDTH 11.4 % (12.0-15.0); WHITE BLOOD COUNT 8.9 x10^3/uL (4.8-10.8)
[2022-09-02 12:51] LABS: ALBUMIN 4.6 g/dL (3.2-5.5); ALBUMIN/GLOBULIN RATIO 1.7 (1.0-2.2); BILIRUBIN,TOTAL 0.9 mg/dL (0.2-1.0); CALCIUM 9.3 mg/dL (8.5-10.3); POTASSIUM 3.7 mmol/L (3.5-5.0); TOTAL PROTEIN 7.3 g/dL (6.7-8.2)
== END 2022-09-02 23:59 | disposition home or self-care (01) ==
LOC: LAB.N 08:00
PROVIDERS: ATTEND Registered Nurse
DX: R63.4 Abnormal weight loss (principal); R19.7 Diarrhea, unspecified
CPT/HCPCS: 36415; 80053; 85025

== ENCOUNTER 2022-09-03 13:30 | Outpatient (CLI) | payer MEDICARE, OTHER ==
[2022-09-03 18:31] LABS: CALCIUM 8.9 mg/dL (8.5-10.3); CREATININE 0.9 mg/dL (0.4-1.0); POTASSIUM 3.7 mmol/L (3.5-5.0)
== END 2022-09-03 13:31 | disposition home or self-care (01) ==
LOC: LAB.N 13:30
PROVIDERS: ATTEND Registered Nurse
DX: E87.1 Hypo-osmolality and hyponatremia (principal)
CPT/HCPCS: 36415; 80048

== ENCOUNTER 2022-09-06 17:35 | Emergency (ER) | payer MEDICARE, OTHER ==
[2022-09-06 18:43] LABS: MEAN CORPUSCULAR VOLUME 94.1 fL (81.0-99.0); MONOCYTES # (AUTO) 0.7 10^3/uL (0.0-1.0); NEUTROPHILS % (AUTO) 70.1 %
[2022-09-06 18:46] LABS: BASOPHILS # (AUTO) 0.1 10^3/uL (0.0-0.1); BASOPHILS % (AUTO) 0.7 %; EOSINOPHILS # (AUTO) 0.1 10^3/uL (0.0-0.7); HCT - HEMATOCRIT 35.3 % (37.0-47.0); HGB - HEMOGLOBIN 12.1 g/dL (12.0-16.0); LYMPHOCYTES # (AUTO) 1.2 10^3/uL (1.5-3.5); LYMPHOCYTES % (AUTO) 17.4 %; MEAN CORPUSCULAR HEMOGLOBIN 32.3 pg (27.0-31.0); MEAN CORPUSCULAR HGB CONC 34.3 g/dL (32.0-36.0); MEAN PLATELET VOLUME 10.3 fL (7.9-10.8); MONOCYTES % (AUTO) 9.5 %; NEUTROPHILS # (AUTO) 4.8 10^3/uL (1.5-6.6); PLT - PLATELET COUNT 282 10^3/uL (130-450); RED BLOOD COUNT 3.75 10^6/uL (4.20-5.40); RED CELL DISTRIBUTION WIDTH 11.5 % (12.0-15.0); WHITE BLOOD COUNT 6.9 x10^3/uL (4.8-10.8)
[2022-09-06 18:49] LABS: CALCIUM 9.1 mg/dL (8.5-10.3); CREATININE 0.8 mg/dL (0.4-1.0); POTASSIUM 3.9 mmol/L (3.5-5.0)
--- NOTE | 2022-09-06 20:20 | ED Physician Documentation ---
History of Present Illness - Stated complaint Stated Complaint: LOW SODIUM - Chief complaint Chief Complaint: General - History obtained from History obtained from: Patient - Additonal information Additional information: The patient is sent to the emergency department for chief complaint of low sodium. She states she was seen in the walk-in clinic because she has been tired ever since she had COVID a few weeks ago. She had labs done there and was found to have a sodium of 121. The patient states she has had hyponatremia previously. She states other than feeling fatigued since the COVID, she really has not had any symptoms. No seizures. No vomiting or diarrhea. No palpitations. The patient states that she Has been using liquid IV electrolyte packets and also has been salting her food since finding out that her sodium was low. Review of Systems Ten Systems: 10 systems reviewed and negative Constitutional: reports: Reviewed and negative Eyes: reports: Reviewed and negative Ears: reports: Reviewed and negative Nose: reports: Reviewed and negative Throat: reports: Reviewed and negative Cardiac: reports: Reviewed and negative Respiratory: reports: Reviewed and negative GI: reports: Reviewed and negative : reports: Reviewed and negative Skin: reports: Reviewed and negative Musculoskeletal: reports: Reviewed and negative Neurologic: reports: Reviewed and negative Psychiatric: reports: Reviewed and negative Endocrine: reports: Reviewed and negative Immunocompromised: reports: Reviewed and negative PD PAST MEDICAL HISTORY - Past Medical History Cardiovascular: Hypertension, High cholesterol, Atrial fibrillation Respiratory: None Neuro: None Endocrine/Autoimmune: None GI: None 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 HEENT: Chronic hearing loss Psych: None Musculoskeletal: None Derm: None - Past Surgical History Past Surgical History: No General: Appendectomy - Present Medications Home Medications: Ambulatory Orders Medication Instructions Recorded Confirmed Apixaban [Eliquis] 1 tab ORAL BID 09/23/20 05/28/22 Lisinopril [Zestril] 1 tablet ORAL DAILY 09/23/20 05/28/22 Simvastatin [Zocor] 1 tablet ORAL DAILY 09/23/20 05/28/22 diltiaZEM [Cardizem] 1 tablet ORAL DAILY 09/23/20 05/28/22 hydroCHLOROthiazide 1 tablet ORAL DAILY 09/23/20 05/28/22 [Hydrochlorothiazide] HYDROcod/ACETAM 5/325 [[place] 5/325] 1 - 2 tablet PO Q6H PRN #14 tablet 07/29/21 05/28/22 Ondansetron Odt [Zofran] 4 mg TL Q6H PRN #10 tablet 07/29/21 05/28/22 - Allergies Allergies/Adverse Reactions: Allergies Allergy/AdvReac Type Severity Reaction Status Date / Time oxycodone Allergy Emesis Verified 09/06/22 17:57 telmisartan [From Micardis] Allergy Unknown Verified 09/06/22 17:57 - Social History Does the pt smoke?: No Smoking Status: Former smoker Does the pt drink ETOH?: Yes Does the pt have substance abuse?: No - Immunizations Immunizations are current?: Yes PD ED PE NORMAL - Vitals Vital signs reviewed: Yes - General General: Alert and oriented X 3, No acute distress, Well developed/nourished - HEENT HEENT: Atraumatic, PERRL, EOMI, Moist mucous membranes - Neck Neck: Supple, no meningeal sign - Cardiac Cardiac: RRR, No murmur, Strong equal pulses - Respiratory Respiratory: No respiratory distress, Clear bilaterally - Abdomen Abdomen: Soft, Non tender, Non distended - Derm Derm: Normal color, Warm and dry, No rash - Extremities Extremities: No deformity, No edema - Neuro Neuro: Alert and oriented X 3 - Psych Psych: Normal mood, Normal affect Results - Vitals Vitals: Vital Signs - 24 hr 09/06/22 17:43 Temperature 36.0 C L Heart Rate 86 Respiratory 16 Rate Blood Pressure 153/48 H O2 Saturation 100 Oxygen O2 Source Room air - Labs Labs: Laboratory Tests 09/06/22 09/06/22 18:35 18:35 WBC 6.9 RBC 3.75 L Hgb 12.1 Hct 35.3 L MCV 94.1 MCH 32.3 H MCHC 34.3 RDW 11.5 L Plt Count 282 MPV 10.3 Neut # (Auto) 4.8 Lymph # (Auto) 1.2 L [place] # (Auto) 0.7 Eos # (Auto) 0.1 Baso # (Auto) 0.1 Absolute Nucleated RBC 0.00 Nucleated RBC % 0.0 Sodium 127 L Potassium 3.9 Chloride 89 L Carbon Dioxide 28 Anion Gap 10.0 BUN 18 Creatinine 0.8 Estimated GFR (MDRD) 69 L Glucose 131 H Calcium 9.1 PD MEDICAL DECISION MAKING - ED course Complexity details: reviewed results, re-evaluated patient, considered differential, d/w patient ED course: The patient was very well-appearing and really had no complaints. I discussed with her that some of the fatigue may be attributable to hyponatremia but most l ikely, and this is just a postviral syndrome. As far as her hyponatremia, her level has improved to 127 on our measurement. I discussed with the patient that she should continue to use a moderate amount of salt on her food and should also continue the electrolyte drinks. She should follow-up with her doctor in a week to have her sodium rechecked. We have discussed the usual indications for ret urn. Departure - Departure Disposition: 01 Home, Self Care Clinical Impression: Hyponatremia Condition: Stable Instructions: ED Hyponatremia Comments: As we have discussed, your sodium has been greatly improved since the levels he had drawn at the walk-in clinic. You are not near the seizure threshold at this point, and the best thing to do is to use salt in moderation on your food and continue to drink the electrolyte drinks as you have been doing. Please follow- up with your doctor in a week to have your levels rechecked.
[2022-09-06 20:21] VITALS: BP 138/71
== END 2022-09-06 20:28 | disposition home or self-care (01) ==
LOC: ED 17:35
DX: E87.1 Hypo-osmolality and hyponatremia (principal); Z87.891 Personal history of nicotine dependence; Z86.16 Personal history of COVID-19
CPT/HCPCS: 36415; 80048; 85025; 99282; 99283

== ENCOUNTER 2022-09-14 08:11 | Outpatient (CLI) | payer MEDICARE, OTHER ==
[2022-09-14 08:22] LABS: BASOPHILS # (AUTO) 0.1 10^3/uL (0.0-0.1); BASOPHILS % (AUTO) 0.9 %; EOSINOPHILS # (AUTO) 0.2 10^3/uL (0.0-0.7); HCT - HEMATOCRIT 33.9 % (37.0-47.0); HGB - HEMOGLOBIN 10.9 g/dL (12.0-16.0); LYMPHOCYTES % (AUTO) 15.5 %; MEAN CORPUSCULAR HEMOGLOBIN 31.8 pg (27.0-31.0); MEAN CORPUSCULAR HGB CONC 32.2 g/dL (32.0-36.0); MEAN CORPUSCULAR VOLUME 98.8 fL (81.0-99.0); MEAN PLATELET VOLUME 9.6 fL (7.9-10.8); MONOCYTES # (AUTO) 0.6 10^3/uL (0.0-1.0); MONOCYTES % (AUTO) 8.6 %; NEUTROPHILS # (AUTO) 4.8 10^3/uL (1.5-6.6); NEUTROPHILS % (AUTO) 71.7 %; PLT - PLATELET COUNT 254 10^3/uL (130-450); RED BLOOD COUNT 3.43 10^6/uL (4.20-5.40); RED CELL DISTRIBUTION WIDTH 12.1 % (12.0-15.0); WHITE BLOOD COUNT 6.6 x10^3/uL (4.8-10.8)
[2022-09-14 08:47] LABS: ALBUMIN 4.3 g/dL (3.2-5.5); ALBUMIN/GLOBULIN RATIO 1.5 (1.0-2.2); ALKALINE PHOSPHATASE 58 IU/L (42-121); ALT ALANINE AMINOTRANSFERASE 13 IU/L (10-60); AST ASPARTATE AMINOTRANSFERASE 18 IU/L (10-42); BILIRUBIN,TOTAL 0.8 mg/dL (0.2-1.0); BUN - BLOOD UREA NITROGEN 12 mg/dL (6-20); CALCIUM 9.1 mg/dL (8.5-10.3); CARBON DIOXIDE - CO2 27 mmol/L (21-32); CHLORIDE 93 mmol/L (101-111); CHOL/HDL RATIO 2.7 (<4.4); CHOLESTEROL 160 mg/dL; CREATININE 0.8 mg/dL (0.4-1.0); GFR - MDRD 69 (>89); GLUCOSE 107 mg/dL (70-100); HDL CHOLESTEROL 59 mg/dL; LDL CHOLESTEROL,CALCULATED 81 mg/dL; LDL/HDL RATIO 1.4 (<4.4); POTASSIUM 3.9 mmol/L (3.5-5.0); SODIUM 128 mmol/L (135-145); TOTAL PROTEIN 7.1 g/dL (6.7-8.2); TRIGLYCERIDES 98 mg/dL; VLDL CHOLESTEROL 20 mg/dL
== END 2022-09-14 08:12 | disposition home or self-care (01) ==
LOC: LAB 08:11
PROVIDERS: ATTEND Physician Assistant Medical
DX: E78.5 Hyperlipidemia, unspecified (principal); D64.9 Anemia, unspecified
CPT/HCPCS: 36415; 80053; 80061; 83721; 85025

== ENCOUNTER 2022-09-17 08:10 | Outpatient (CLI) | payer MEDICARE, OTHER ==
[2022-09-17 08:36] LABS: CALCIUM 9.2 mg/dL (8.5-10.3); CREATININE 0.8 mg/dL (0.4-1.0); POTASSIUM 4.2 mmol/L (3.5-5.0)
[2022-09-20 15:08] LABS: OSMOLALITY 271 mOsmol/kg (280-301); OSMOLALITY URINE 419 mOsmol/kg (.)
== END 2022-09-17 08:11 | disposition home or self-care (01) ==
LOC: LAB 08:10
PROVIDERS: ATTEND Family Medicine
DX: E87.1 Hypo-osmolality and hyponatremia (principal)
CPT/HCPCS: 36415; 80048; 83930; 83935; 84300

== ENCOUNTER 2022-12-20 16:50 | Emergency (ER) | payer MEDICARE, OTHER ==
[2022-12-20 17:26] LABS: BASOPHILS # (AUTO) 0.1 10^3/uL (0.0-0.1); EOSINOPHILS # (AUTO) 0.3 10^3/uL (0.0-0.7); EOSINOPHILS % (AUTO) 4.1 %; HCT - HEMATOCRIT 34.4 % (37.0-47.0); HGB - HEMOGLOBIN 11.7 g/dL (12.0-16.0); LYMPHOCYTES # (AUTO) 1.3 10^3/uL (1.5-3.5); LYMPHOCYTES % (AUTO) 19.8 %; MEAN CORPUSCULAR HEMOGLOBIN 32.5 pg (27.0-31.0); MEAN CORPUSCULAR VOLUME 95.6 fL (81.0-99.0); MEAN PLATELET VOLUME 10.2 fL (7.9-10.8); MONOCYTES # (AUTO) 0.5 10^3/uL (0.0-1.0); MONOCYTES % (AUTO) 7.2 %; NEUTROPHILS # (AUTO) 4.6 10^3/uL (1.5-6.6); NEUTROPHILS % (AUTO) 67.8 %; PLT - PLATELET COUNT 224 10^3/uL (130-450); RED CELL DISTRIBUTION WIDTH 11.6 % (12.0-15.0); WHITE BLOOD COUNT 6.8 x10^3/uL (4.8-10.8)
[2022-12-20 17:38] LABS: ALBUMIN 4.4 g/dL (3.2-5.5); ALBUMIN/GLOBULIN RATIO 1.6 (1.0-2.2); BILIRUBIN,TOTAL 0.6 mg/dL (0.2-1.0); CREATININE 0.7 mg/dL (0.4-1.0); POTASSIUM 3.5 mmol/L (3.5-5.0); TOTAL PROTEIN 7.1 g/dL (6.7-8.2)
[2022-12-20] MEDS ORDERED: SODIUM CHLORIDE 0.9% 1,000 ML IV STA (18:56)
--- NOTE | 2022-12-20 19:12 | ED Physician Documentation ---
History of Present Illness - Stated complaint Stated Complaint: DIZZY - Chief complaint Chief Complaint: Neuro - History obtained from History obtained from: Patient - History of Present Illness Timing: Today Pain level max: 0 Pain level now: 0 - Additonal information Additional information: Patient is an 82-year-old female who presents to the emergency department stating that she was driving today when she felt warm and dizzy like she was going to "pass out". This lasted for about 20 minutes and then resolved. She is currently asymptomatic. Patient has a history of hyponatremia. She states they are not sure what has caused the hyponatremia in the past, but she is still taking hydrochlorothiazide. Patient had no focal neurological deficits. No numbness or weakness. No difficulty with speech or word finding. No vision changes. Currently asymptomatic. 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 HEENT: Chronic hearing loss Psych: None Musculoskeletal: None Derm: None - Past Surgical History Past Surgical History: No General: Appendectomy - Present Medications Home Medications: Ambulatory Orders Medication Instructions Recorded Confirmed Apixaban [Eliquis] 1 tab ORAL BID 09/23/20 05/28/22 Lisinopril [Zestril] 1 tablet ORAL DAILY 09/23/20 05/28/22 Simvastatin [Zocor] 1 tablet ORAL DAILY 09/23/20 05/28/22 diltiaZEM [Cardizem] 1 tablet ORAL DAILY 09/23/20 05/28/22 hydroCHLOROthiazide 1 tablet ORAL DAILY 09/23/20 05/28/22 [Hydrochlorothiazide] HYDROcod/ACETAM 5/325 [[place] 5/325] 1 - 2 tablet PO Q6H PRN #14 tablet 07/29/21 05/28/22 Ondansetron Odt [Zofran] 4 mg TL Q6H PRN #10 tablet 07/29/21 05/28/22 - Allergies Allergies/Adverse Reactions: Allergies Allergy/AdvReac Type Severity Reaction Status Date / Time oxycodone Allergy Emesis Verified 12/20/22 16:58 telmisartan [From Micardis] Allergy Unknown Verified 12/20/22 16:58 - Social History Does the pt smoke?: No Smoking Status: Former smoker Does the pt drink ETOH?: Yes Does the pt have substance abuse?: No - Immunizations Immunizations are current?: Yes PD ED PE NORMAL - Vitals Vital signs reviewed: Yes - General General: Alert and oriented X 3, No acute distress, Well developed/nourished - HEENT HEENT: PERRL, Moist mucous membranes - Neck Neck: Supple, no meningeal sign - Cardiac Cardiac: RRR, Strong equal pulses - Respiratory Respiratory: No respiratory distress, Clear bilaterally - Abdomen Abdomen: Soft, Non tender, Non distended - Derm Derm: Warm and dry, No rash - Extremities Extremities: No edema, No calf tenderness / cord - Neuro Neuro: Alert and oriented X 3, card lacer 2-12 intact, No motor deficit, No sensory deficit, Normal speech, Other (no nystagmus) Eye Opening: Spontaneous Motor: Obeys Commands Verbal: Oriented GCS Score: 15 - Psych Psych: Normal mood, Normal affect Results - Vitals Vitals: Vital Signs - 24 hr 12/20/22 12/20/22 12/20/22 16:56 19:00 19:55 Temperature 35.9 C L Heart Rate 70 74 93 Respiratory 20 16 24 Rate Blood Pressure 184/69 H 175/82 H 162/69 H O2 Saturation 97 100 100 Oxygen O2 Source Room air - EKG (time done) 1703 EKG releavant findings:: EKG personally interpreted by author of this note. Relevant findings are: Rate: Rate (enter#) (65) Rhythm: NSR [place]: Normal Intervals: Normal PA QRS: Normal Ischemia: Normal ST segments - Labs Labs: Laboratory Tests 12/20/22 12/20/22 12/20/22 17:11 17:11 17:11 WBC 6.8 RBC 3.60 L Hgb 11.7 L Hct 34.4 L MCV 95.6 MCH 32.5 H MCHC 34.0 RDW 11.6 L Plt Count 224 MPV 10.2 Neut # (Auto) 4.6 Lymph # (Auto) 1.3 L [place] # (Auto) 0.5 Eos # (Auto) 0.3 Baso # (Auto) 0.1 Absolute Nucleated RBC 0.00 Nucleated RBC % 0.0 Sodium 124 L Potassium 3.5 Chloride 90 L Carbon Dioxide 22 Anion Gap 12.0 BUN 20 Creatinine 0.7 Estimated GFR (MDRD) 80 L Glucose 140 H Calcium 9.0 Total Bilirubin 0.6 AST 21 ALT 15 Alkaline Phosphatase 57 Troponin I High Sens 5.4 Total Protein 7.1 Albumin 4.4 Globulin 2.7 Albumin/Globulin Ratio 1.6 Lipase 40 PD Medical Decision Making - ED course Complexity details: reviewed results, re-evaluated patient, considered differential, d/w patient ED course: 82-year-old female with transient lightheadedness earlier today. Normal cerebellar testing here. Normal gait. No nystagmus. NIH stroke scale is 0. CBC does not show any significant abnormalities, mild anemia which is chronic. She also has chronic hyponatremia, slightly worse than usual at 124. She is still taking a thiazide diuretic, recommend discussing with her doctor stopping this to see if this improves her hyponatremia. She was given IV fluids here. She remains asymptomatic. We will have her follow-up with her doctor for further care. No indication for emergent neuroimaging. Patient counseled regarding signs and symptoms for which I believe and urgent re-evaluation would be necessary. Patient with good understanding of and agreement to plan and is comfortable going home at this time This document was made in part using voice recognition software. While efforts are made to proofread this document, sound alike and grammatical errors may occur. No acute findings on EKG or telemetry. No evidence of arrhythmia Departure - Departure Disposition: 01 Home, Self Care Clinical Impression: Hyponatremia, Dizziness Condition: Good Instructions: ED Hyponatremia Follow-Up: Pauline Quiroz PA-C [Primary Care Provider] - Within 1 week Comments: Please follow-up with your doctor for further care. You were given IV fluids tonight that contain sodium, so your sodium level should increase. You should talk to your doctor about stopping your diuretics as these can worsen your low sodium levels. Hydrochlorothiazide is a diuretic. Discharge Date/Time: 12/20/22 20:01
[2022-12-20 19:57] VITALS: BP 162/69
== END 2022-12-20 20:01 | disposition home or self-care (01) ==
LOC: ED 16:50
DX: R42 Dizziness and giddiness (principal); E87.1 Hypo-osmolality and hyponatremia; I10 Essential (primary) hypertension; I48.91 Unspecified atrial fibrillation; Z79.01 Long term (current) use of anticoagulants; Z79.899 Other long term (current) drug therapy; Z87.891 Personal history of nicotine dependence
CPT/HCPCS: 36415; 80053; 83690; 84484; 85025; 93005; 96360; 99284

== ENCOUNTER 2023-01-20 08:33 | Outpatient (CLI) | payer MEDICARE, OTHER ==
[2023-01-20 08:56] LABS: CALCIUM 9.1 mg/dL (8.5-10.3); CREATININE 0.9 mg/dL (0.4-1.0); POTASSIUM 4.1 mmol/L (3.5-5.0)
== END 2023-01-20 08:34 | disposition home or self-care (01) ==
LOC: LAB 08:33
PROVIDERS: ATTEND Physician Assistant Medical
DX: E87.1 Hypo-osmolality and hyponatremia (principal)
CPT/HCPCS: 36415; 80048

== ENCOUNTER 2023-03-15 08:00 | Outpatient (CLI) | payer MEDICARE, OTHER ==
[2023-03-15 08:02] LABS: ALBUMIN 4.3 g/dL (3.2-5.5); ALBUMIN/GLOBULIN RATIO 1.4 (1.0-2.2); ALKALINE PHOSPHATASE 73 IU/L (42-121); ALT ALANINE AMINOTRANSFERASE 15 IU/L (10-60); AST ASPARTATE AMINOTRANSFERASE 22 IU/L (10-42); BILIRUBIN,TOTAL 0.7 mg/dL (0.2-1.0); BUN - BLOOD UREA NITROGEN 15 mg/dL (6-20); CARBON DIOXIDE - CO2 28 mmol/L (21-32); CHLORIDE 98 mmol/L (101-111); CHOL/HDL RATIO 2.7 (<4.4); CHOLESTEROL 201 mg/dL; CREATININE 0.8 mg/dL (0.4-1.0); GFR - MDRD 69 (>89); GLUCOSE 112 mg/dL (70-100); HDL CHOLESTEROL 75 mg/dL; LDL CHOLESTEROL,CALCULATED 97 mg/dL; LDL/HDL RATIO 1.3 (<4.4); POTASSIUM 4.5 mmol/L (3.5-5.0); SODIUM 134 mmol/L (135-145); TOTAL PROTEIN 7.3 g/dL (6.7-8.2); TRIGLYCERIDES 147 mg/dL; VLDL CHOLESTEROL 29 mg/dL
== END 2023-03-15 23:59 | disposition home or self-care (01) ==
LOC: LAB 08:00
PROVIDERS: ATTEND Physician Assistant Medical
DX: E78.5 Hyperlipidemia, unspecified (principal)
CPT/HCPCS: 36415; 80053; 80061; 83721

== ENCOUNTER 2023-05-02 12:30 | Outpatient (CLI) | payer MEDICARE, OTHER ==
[2023-05-02 18:05] LABS: BASOPHILS # (AUTO) 0.1 10^3/uL (0.0-0.1); BASOPHILS % (AUTO) 0.8 %; EOSINOPHILS # (AUTO) 0.3 10^3/uL (0.0-0.7); EOSINOPHILS % (AUTO) 4.2 %; HCT - HEMATOCRIT 38.1 % (37.0-47.0); HGB - HEMOGLOBIN 12.7 g/dL (12.0-16.0); LYMPHOCYTES % (AUTO) 13.7 %; MEAN CORPUSCULAR HEMOGLOBIN 31.8 pg (27.0-31.0); MEAN CORPUSCULAR HGB CONC 33.3 g/dL (32.0-36.0); MEAN CORPUSCULAR VOLUME 95.5 fL (81.0-99.0); MEAN PLATELET VOLUME 11.7 fL (7.9-10.8); MONOCYTES # (AUTO) 0.4 10^3/uL (0.0-1.0); MONOCYTES % (AUTO) 6.2 %; NEUTROPHILS # (AUTO) 5.4 10^3/uL (1.5-6.6); PLT - PLATELET COUNT 262 10^3/uL (130-450); RED BLOOD COUNT 3.99 10^6/uL (4.20-5.40); RED CELL DISTRIBUTION WIDTH 11.7 % (12.0-15.0); WHITE BLOOD COUNT 7.1 x10^3/uL (4.8-10.8)
[2023-05-02 18:35] LABS: ALBUMIN 4.7 g/dL (3.2-5.5); ALBUMIN/GLOBULIN RATIO 1.5 (1.0-2.2); BILIRUBIN,TOTAL 0.4 mg/dL (0.2-1.0); CREATININE 0.9 mg/dL (0.6-1.3); POTASSIUM 4.9 mmol/L (3.5-4.5); TOTAL PROTEIN 7.8 g/dL (6.4-8.9)
[2023-05-02 18:45] LABS: THYROID STIMULATING HORMONE 2.44 uIU/mL (0.34-5.60)
== END 2023-05-02 12:45 | disposition home or self-care (01) ==
LOC: LAB.N 12:30
PROVIDERS: ATTEND Family Medicine
DX: R53.83 Other fatigue (principal)
CPT/HCPCS: 36415; 80053; 84443; 85025

== ENCOUNTER 2023-05-06 07:46 | Outpatient (CLI) | payer MEDICARE, OTHER ==
[2023-05-06 08:26] LABS: CALCIUM 9.6 mg/dL (8.5-10.3); POTASSIUM 5.2 mmol/L (3.5-4.5)
== END 2023-05-06 07:47 | disposition home or self-care (01) ==
LOC: LAB 07:46
PROVIDERS: ATTEND Family Medicine
DX: E87.1 Hypo-osmolality and hyponatremia (principal)
CPT/HCPCS: 36415; 80048

== ENCOUNTER 2023-05-06 09:05 | Inpatient (IN) | payer MEDICARE, OTHER ==
[2023-05-06 09:37] LABS: BASOPHILS # (AUTO) 0.1 10^3/uL (0.0-0.1); BASOPHILS % (AUTO) 0.7 %; EOSINOPHILS # (AUTO) 0.5 10^3/uL (0.0-0.7); EOSINOPHILS % (AUTO) 6.1 %; HCT - HEMATOCRIT 37.2 % (37.0-47.0); HGB - HEMOGLOBIN 12.9 g/dL (12.0-16.0); LYMPHOCYTES # (AUTO) 1.1 10^3/uL (1.5-3.5); LYMPHOCYTES % (AUTO) 12.5 %; MEAN CORPUSCULAR HEMOGLOBIN 32.3 pg (27.0-31.0); MEAN CORPUSCULAR HGB CONC 34.7 g/dL (32.0-36.0); MONOCYTES # (AUTO) 0.7 10^3/uL (0.0-1.0); MONOCYTES % (AUTO) 7.7 %; NEUTROPHILS # (AUTO) 6.1 10^3/uL (1.5-6.6); NEUTROPHILS % (AUTO) 72.8 %; PLT - PLATELET COUNT 243 10^3/uL (130-450); RED CELL DISTRIBUTION WIDTH 11.2 % (12.0-15.0); WHITE BLOOD COUNT 8.4 x10^3/uL (4.8-10.8)
[2023-05-06 09:49] LABS: ALBUMIN 4.6 g/dL (3.2-5.5)
[2023-05-06 09:55] LABS: ALBUMIN/GLOBULIN RATIO 1.5 (1.0-2.2); BILIRUBIN,TOTAL 0.5 mg/dL (0.2-1.0); CALCIUM 9.5 mg/dL (8.5-10.3); POTASSIUM 4.5 mmol/L (3.5-4.5); TOTAL PROTEIN 7.6 g/dL (6.4-8.9)
--- NOTE | 2023-05-06 09:55 | ED Physician Documentation ---
History of Present Illness - Stated complaint Stated Complaint: LOW SODIUM - Chief complaint Chief Complaint: General - History obtained from History obtained from: Patient - Additonal information Additional information: Patient is an 82-year-old female presenting for evaluation of low sodium. Patient states that she went to the walk-in clinic on Tuesday for 2 to 3-week history of dizziness and feeling lightheaded and weak. She reports they took her off her spironolactone and started her on hydrochlorothiazide. They also checked labs. They told her that she should get her labs rechecked in 1 week. She decided to go today to have her labs rechecked. She was then told that her sodium was low and that she needed to come to the emergency department. Patient denies that she was told her sodium was low earlier this week. She does adhere to a low-salt diet due to her history of hypertension. Patient does report feeling increasingly thirsty for the past week and has been drinking more water. Denies vomiting or diarrhea. She does have a history of A-fib and is on Eliquis. Denies falls or head injury. No headache. No chest pain or shortness of breath. 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 : None HEENT: Chronic hearing loss Psych: None Musculoskeletal: None Derm: None - Past Surgical History Past Surgical History: No General: Appendectomy - Present Medications Home Medications: Ambulatory Orders Medication Instructions Recorded Confirmed Apixaban [Eliquis] 1 tab ORAL BID 09/23/20 05/28/22 Lisinopril [Zestril] 1 tablet ORAL DAILY 09/23/20 05/28/22 Simvastatin [Zocor] 1 tablet ORAL DAILY 09/23/20 05/28/22 diltiaZEM [Cardizem] 1 tablet ORAL DAILY 09/23/20 05/28/22 hydroCHLOROthiazide 1 tablet ORAL DAILY 09/23/20 05/28/22 [Hydrochlorothiazide] HYDROcod/ACETAM 5/325 [[place] 5/325] 1 - 2 tablet PO Q6H PRN #14 tablet 07/29/21 05/28/22 Ondansetron Odt [Zofran] 4 mg TL Q6H PRN #10 tablet 07/29/21 05/28/22 - Allergies Allergies/Adverse Reactions: Allergies Allergy/AdvReac Type Severity Reaction Status Date / Time oxycodone Allergy Emesis Verified 12/20/22 16:58 telmisartan [From Micardis] Allergy Unknown Verified 12/20/22 16:58 - Social History Does the pt smoke?: No Smoking Status: Never smoker Does the pt drink ETOH?: Yes Does the pt have substance abuse?: No - Immunizations Immunizations are current?: Yes - POLST Patient has POLST: No PD ED PE NORMAL - General General: Alert and oriented X 3, No acute distress, Well developed/nourished - HEENT HEENT: Atraumatic - Neck Neck: Supple, no meningeal sign - Cardiac Cardiac: RRR - Respiratory Respiratory: No respiratory distress, Clear bilaterally - Abdomen Abdomen: Soft, Non tender - Derm Derm: Warm and dry - Extremities Extremities: No edema - Neuro Neuro: Normal speech Results - Vitals Vitals: Vital Signs - 24 hr 05/06/23 05/06/23 05/06/23 09:09 09:17 12:08 Temperature 36.7 C Heart Rate 69 61 Respiratory 20 14 Rate Blood Pressure 185/65 H 179/67 H O2 Saturation 100 100 Oxygen O2 Source Room air - EKG (time done) 0947 EKG releavant findings:: EKG personally interpreted by author of this note. Relevant findings are: Rate 63, normal sinus rhythm, no STEMI, QTc 406 Rate: Rate (enter#) (63) Rhythm: NSR Intervals: No: Prolonged QT Ischemia: No: ST elevation c/w ischemia - Labs Labs: Laboratory Tests 05/06/23 05/06/23 05/06/23 09:32 09:32 10:30 WBC 8.4 RBC 4.00 L Hgb 12.9 Hct 37.2 MCV 93.0 MCH 32.3 H MCHC 34.7 RDW 11.2 L Plt Count 243 MPV 10.0 Neut # (Auto) 6.1 Lymph # (Auto) 1.1 L [place] # (Auto) 0.7 Eos # (Auto) 0.5 Baso # (Auto) 0.1 Absolute Nucleated RBC 0.00 Nucleated RBC % 0.0 Sodium 118 L* Potassium 4.5 Chloride 84 L Carbon Dioxide 26 Anion Gap 8.0 BUN 17 Creatinine 1.0 Estimated GFR (MDRD) 53 L Glucose 105 H Calcium 9.5 Total Bilirubin 0.5 AST 19 ALT 11 Alkaline Phosphatase 75 Total Protein 7.6 Albumin 4.6 Globulin 3.0 Albumin/Globulin Ratio 1.5 Urine Color YELLOW Urine Clarity CLEAR Urine pH 7.5 Ur Specific [place] 1.010 Urine Protein NEGATIVE Urine Glucose (UA) NEGATIVE Urine Ketones NEGATIVE Urine Occult Blood NEGATIVE Urine Nitrite NEGATIVE Urine Bilirubin NEGATIVE Urine Urobilinogen 0.2 (NORMAL) Ur Leukocyte Esterase NEGATIVE Ur Microscopic Review NOT INDICATED Urine Culture Comments NOT INDICATED PD Medical Decision Making - ED course Complexity details: reviewed results, re-evaluated patient, d/w patient ED course: 1058 - Discussed with admitting hospitalist Dr. Crawford who will admit the patient for further management. Agrees with our current plan with hypertonic saline at 30 mL/h. Request chest x-ray. Patient is an 82-year-old female presenting for evaluation of hyponatremia. Patient had labs done this week at the walk-in clinic. Found to be hyponatremic this morning with a sodium of 119. Just a few months ago her sodium was normal. She has had recent changes to her medications including being taken off of spironolactone and starting on hydrochlorothiazide. She does report feeling lightheaded and dizzy. Otherwise her neuro exam is normal. Repeat labs were obtained confirming hyponatremia with a sodium of 118. Patient was started on hypertonic saline. Discussed with the admitting hospitalist who agrees with management and will admit for further care. Chest x-ray was obtained which I reviewed I see no signs of a mass or effusion. Departure - Departure Disposition: [facility] Clinical Impression: Hyponatremia Condition: Stable Discharge Date/Time: 05/06/23 14:06
[2023-05-06] MEDS ORDERED: SODIUM CHLORIDE 3% HYPERTONIC 100 ML IV SCH (10:00)
[2023-05-06 10:52] LABS: BILIRUBIN,URINE NEGATIVE (NEGATIVE); GLUCOSE, URINE (UA) NEGATIVE (NEGATIVE); KETONES,URINE (UA) NEGATIVE (NEGATIVE); LEUKOCYTE ESTERASE, URINE NEGATIVE (NEGATIVE); NITRITE,URINE NEGATIVE (NEGATIVE); OCCULT BLOOD,URINE NEGATIVE (NEGATIVE); PH,URINE 7.5 PH (5.0-7.5); PROTEIN,URINE NEGATIVE (NEGATIVE); UROBILINOGEN,URINE 0.2 (NORMAL) E.U./dL (NORMAL)
[2023-05-06 10:54] LABS: CLARITY,URINE CLEAR (CLEAR)
--- NOTE | 2023-05-06 11:16 | XRAY Report ---
PROCEDURE: Chest 1 View X-Ray INDICATIONS: hyponatremia TECHNIQUE: One view of the chest was acquired. COMPARISON: None. FINDINGS: Surgical changes and devices: None. Lungs and pleura: No pleural effusions or pneumothorax. Lungs are clear. Mediastinum: Mediastinal contours appear normal. Heart size is normal. Bones and chest wall: No suspicious bony lesions. Overlying soft tissues appear unremarkable. IMPRESSION: No acute cardiopulmonary process. Reviewed by: Kel Vincent MD on 05/06/2023 11:14 AM PDT Approved by: Kel Vincent MD on 05/06/2023 11:14 AM PDT Station ID: [id number]
[2023-05-06] MEDS ORDERED: ACETAMINOPHEN 325 MG TABLET PO PRN (12:44)
[2023-05-06] MEDS ORDERED: ONDANSETRON 4 MG/2 ML VIAL IVP PRN (12:44)
[2023-05-06] MEDS ORDERED: SODIUM CHLORIDE FLUSH 0.9% 10 ML SYRINGE IVP PRN (12:44)
[2023-05-06] MEDS ORDERED: SODIUM CHLORIDE 0.9% 1,000 ML IV SCH (13:00)
--- NOTE | 2023-05-06 14:41 | PHARMACY PROGRESS NOTE ---
- Best Possible Medication History Admit Date and Time: 05/06/23 1244 Processed by: Pharmacy Medication History completed: Yes Patient Interview: Completed Secondary Source(s): Pharmacy records As the person ultimately responsible for medication therapy, providers are able to order a medication from an existing home medication list in [facility] via the "Reconcile Routine" prior to Confirmation of that medication by it support technician. Such practice is discouraged except when the physician, in their clinical judgment, deems that a medical need exists for a medication without regard to previous use.
[2023-05-06] MEDS: SODIUM CHLORIDE FLUSH 0.9% 10 ML SYRINGE IVP SCH (16:11)
[2023-05-06] MEDS: SODIUM CHLORIDE 0.9% 1,000 ML IV SCH (16:22)
--- NOTE | 2023-05-06 16:54 | HISTORY & PHYSICAL EXAMINATION ---
Chief Complaint - Chief Complaint Chief Complaint: Dizziness & lightheadedness, told to come to ER due to abn labs History of Present Illness - Admitted From Admitted From:: ED - History Obtained From History obtained from: ED provider and the patient - History of Present Illness HPI Comment/Other: This is an 82-year-old female with a history of hypertension on l isinopril and spironolactone which was recently changed to lisinopril and HCTZ. She has a history of atrial fib diagnosed about 4 years ago and is on Cardizem and Eliquis. She sees her [employer] once a year, in [place]. She describes being lightheaded for many years for which she takes a daily container of "liquid IV" (an electrolyte suppl powder which she mixes with water) which she buys from [employer] She then feels better for about an hour or 2 and then again feels lightheaded. Recently she saw a provider for c/o lightheadedness and had lab work done which showed a serum sodium of 124. (She normally runs serum sodiums of 125-130). No medication changes were made or other advice give, but she was told to have labs rechecked in 1 to 2 weeks which she did today. Her serum sodium level came back at 118 and she was advised she go to our ER. She received 100 mL of 3% saline in the ED. The ED provider then spoke to me about her. The patient will be admitted for treating hyponatremia and evaluating its cause. Patient usually walks daily and then drinks a glass of ice water. She has not walked for 1 week because of feeling severely lightheaded. We spoke about her overall fluid intake and she has about 7 to 8 glasses of liquids per day: 2 cups of coffee, 1 cup of tea, a glass of ice water after walking, a glass of ice water with dinner, a glass of water with "liquid IV" at midday, possibly another glass of water before dinner. The patient is a full code. 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 Social History Notes: Patient usually walks daily and then drinks a glass of ice water. She has not walked for 1 week because of feeling lightheaded. Patient was an ex-smoker quit in 1983. She drinks rare alcohol, just several times per year. She denies drug use. - POLST Patient has POLST: No Meds/Allgy - Home Medications Home Medications: Ambulatory Orders Medication Instructions Recorded Confirmed Apixaban [Eliquis] 1 tab ORAL BID 09/23/20 05/06/23 Simvastatin [Zocor] 1 tablet ORAL DAILY 09/23/20 05/06/23 hydroCHLOROthiazide 1 tablet ORAL DAILY 09/23/20 05/06/23 [Hydrochlorothiazide] Acetaminophen/Diphenhydramine [[facility] 2 tab PO HS 05/06/23 05/06/23 Acetaminophen Pm Caplet] Cholecalciferol (Vitamin D3) 1 cap PO DAILY 05/06/23 05/06/23 [Vitamin D3] Magnesium Oxide [Mag Ox] 1 tab PO BID 05/06/23 05/06/23 dilTIAZem HCL [Diltiazem 24Hr ER] 1 cap PO DAILY 05/06/23 05/06/23 lisinopriL [Lisinopril] 1 tab PO BID 05/06/23 05/06/23 - Allergies Allergies/Adverse Reactions: Allergies Allergy/AdvReac Type Severity Reaction Status Date / Time oxycodone Allergy Emesis Verified 12/20/22 16:58 telmisartan [From Micardis] Allergy Unknown Verified 12/20/22 16:58 Review of Systems - Constitutional Constitutional: reports: Fatigue (Fogginess and lightheadedness for the past 1 week) - Cardiovascular Cariovascular: reports: Edema (She has had severe ankle edema until recently, when he started to use compression stocking. Even the Spironolactone and the HCTZ did not control her ankle edema.), Lightheadedness - Respiratory Respiratory: reports: Other (Has allergic rhinitis sx) - All Other Systems All Other Systems: reports: Reviewed and negative Exam - Vital Signs Reviewed Vital Signs: Yes Vital Signs: Vital Signs x48h Temp Pulse Pulse Resp BP BP Pulse Ox 05/06/23 15:43 36.3 C L 60 18 140/60 H 100 05/06/23 14:38 36.1 C L 62 16 150/58 H 100 05/06/23 13:10 65 15 162/85 H 97 05/06/23 12:08 61 14 179/67 H 100 05/06/23 09:17 185/65 H 05/06/23 09:09 36.7 C 69 20 100 - Physical Exam General Appearance: positive: No acute distress, Alert Eyes Bilateral: positive: Normal inspection, EOMI ENT: positive: ENT inspection nml, No signs of dehydration Neck: positive: Nml inspection, Thyroid nml, No JVD Respiratory: positive: No respiratory distress, Breath sounds nml Cardiovascular: positive: Regular rate & rhythm, No murmur Abdomen: positive: Non-tender, Nml bowel sounds, No distention Skin: positive: Warm, Dry Extremities: positive: Non-tender, No pedal edema Neurologic/Psychiatric: positive: Oriented x3, Motor nml Conclusion/Plan - Problem List (1) Hyponatremia Conclusion/Plan: In going through the long list of causes of hyponatremia there are approximately 2 that are present for this patient: She takes HCTZ and she drinks excessive amounts of free water in the form of 8 glasses per day, and only one of the glasses has electrolytes in it (which is the 1 in which she puts her "liquid IV" from [employer] I reviewed the contents of 1 container of "liquid IV" and it is 550 mg of sodium and only 1 of these per day is recommended by the unit educator. Other causes for hyponatremia are not present: such as pseudohyponatremia from hyperglycemia or high proteins are not present, she is not a diabetic, there is no history of linezolid or chemotherapy use, she has no history of heart failure or liver cirrhosis, she does not have beer potomania, Her serum is not lipemic, she has no renal failure. Plan: Begin IV normal saline at 83 to 125 cc an hour, adjusting it based on serum sodium levels We will follow her serum sodium every 6 hours. The plan is to correct Na slowly in order to avoid neurologic problems, 6-8 mEq per 12 h. I educated her about her excessive intake of free water, and that in its place she should drink juices and broths. Also, she reported being strict about not using salt because of HTN and I advised her she can liberalize her salt use. 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 I will also not use her Spironolactone since she has no peripheral edema. I reviewed all these plans with the patient and she understood. I will check this patient's a.m. cortisol level to rule out hypopituitarism and will measure her TSH to rule out hypothyroidism. (2) Dizziness Conclusion/Plan: Lightheadedness is a known symptom of hyponatremia. It is interesting that this patient only felt better after she drank her "liquid IV" which contains sodium. Plan: We will check orthostatic vital signs. (3) HTN (hypertension) Conclusion/Plan: The patient was on lisinopril, HCTZ most recently, spironolactone was recently discontinued Plan: We will continue only her lisinopril. We will give her education about how much salt she can take in also (4) History of atrial fibrillation Conclusion/Plan: Patient is on Cardizem for her A-fib and is on Eliquis for stroke prevention. Her EKG shows that she is in sinus rhythm. The Cardizem must be keeping her out of A-fib or it is paroxysmal Plan: Continue with her usual diltiazem dose She is on the wrong Eliquis dose for a patient who is over 80 but has a normal creatinine and has a normal weight. I reviewed this with our pharmacist. Her dose should be 5 mg twice daily which I will order, and discharge her on this. - Lab Results Fish Bones: 05/06/23 09:32 05/06/23 17:07 - Diagnostic Imaging Results Diagnostic Imaging Results: positive: Final report reviewed - Other Other Results/Comments: Attestation: The patient is expected to be discharged or transferred to another facility within 96 hours: Yes.
[2023-05-06] MEDS: diphenhydrAMINE 25 MG CAPSULE PO SCH (20:24)
[2023-05-06] MEDS: APIXABAN 5 MG TABLET PO SCH (20:24)
[2023-05-06] MEDS: lisinopriL 20 MG TABLET PO SCH (20:25)
[2023-05-06] MEDS: MAGNESIUM OXIDE 400 MG TABLET PO SCH (20:25)
--- NOTE | 2023-05-07 00:14 | PROVIDER PROGRESS NOTE ---
Channel Man Note - Channel Man Note Channel Man Note: Patient complained of indigestion Tums ordered bid prn
[2023-05-07] MEDS: SODIUM CHLORIDE FLUSH 0.9% 10 ML SYRINGE IVP SCH ×4 (00:24→23:22)
[2023-05-07] MEDS: CALCIUM CARBONATE CHEW 500 MG TABLET PO SCH ×3 (00:24→20:20)
[2023-05-07] MEDS: SODIUM CHLORIDE 0.9% 1,000 ML IV SCH ×2 (02:58→15:07)
[2023-05-07 05:05] LABS: BASOPHILS % (AUTO) 0.4 %; EOSINOPHILS # (AUTO) 0.3 10^3/uL (0.0-0.7); EOSINOPHILS % (AUTO) 3.4 %; HCT - HEMATOCRIT 32.9 % (37.0-47.0); HGB - HEMOGLOBIN 11.3 g/dL (12.0-16.0); LYMPHOCYTES # (AUTO) 0.9 10^3/uL (1.5-3.5); LYMPHOCYTES % (AUTO) 9.7 %; MEAN CORPUSCULAR HGB CONC 34.3 g/dL (32.0-36.0); MEAN CORPUSCULAR VOLUME 93.2 fL (81.0-99.0); MEAN PLATELET VOLUME 10.4 fL (7.9-10.8); MONOCYTES # (AUTO) 0.5 10^3/uL (0.0-1.0); MONOCYTES % (AUTO) 5.5 %; NEUTROPHILS # (AUTO) 7.5 10^3/uL (1.5-6.6); NEUTROPHILS % (AUTO) 80.7 %; PLT - PLATELET COUNT 240 10^3/uL (130-450); RED BLOOD COUNT 3.53 10^6/uL (4.20-5.40); RED CELL DISTRIBUTION WIDTH 11.4 % (12.0-15.0); WHITE BLOOD COUNT 9.3 x10^3/uL (4.8-10.8)
[2023-05-07 05:17] LABS: CALCIUM 8.9 mg/dL (8.5-10.3); CREATININE 0.8 mg/dL (0.6-1.3); POTASSIUM 4.7 mmol/L (3.5-4.5)
[2023-05-07] MEDS: lisinopriL 20 MG TABLET PO SCH (08:52)
[2023-05-07] MEDS: MAGNESIUM OXIDE 400 MG TABLET PO SCH ×2 (08:52→20:20)
[2023-05-07] MEDS: APIXABAN 5 MG TABLET PO SCH ×2 (08:52→20:20)
[2023-05-07] MEDS: diltiaZEM CD 180 MG CAPSULE PO SCH (08:52)
[2023-05-07 10:05] LABS: THYROID STIMULATING HORMONE 1.95 uIU/mL (0.34-5.60)
--- NOTE | 2023-05-07 15:18 | PROVIDER PROGRESS NOTE ---
Assessment/Plan - Problem List (1) Hyponatremia Assessment/Plan: In going through the long list of causes of hyponatremia there are approximately 2 that are present for this patient: She takes HCTZ and she drinks excessive amounts of free water in the form of 8 glasses per day, and only one of the glasses has electrolytes in it (which is the 1 in which she puts her "liquid IV" from [employer]). I reviewed the contents of 1 container of "liquid IV" and it is 550 mg of sodium and only 1 of these per day is recommended by the manufacturing supervisor 2nd shift. Other causes for hyponatremia are not present: such as pseudohyponatremia from hyperglycemia nor are high proteins present, she is not a diabetic, there is no history of linezolid or chemotherapy use, she has no history of heart failure or liver cirrhosis, she does not have beer potomania, her serum is not lipemic, she has no renal failure. The patient's a.m. cortisol level was WNL, ruling out hypopituitarism Her TSH came back adequate, ruling out Hypothyroidism Plan: Cont IV normal saline at 83 to 100 cc an hour, adjusting it based on serum sodium levels. We will now follow her serum sodium every 12 hours. The plan is to correct Na slowly in order to avoid neurologic problems, 6-8 mEq per 12 h. I educated her about her excessive intake of free water, and that in its place she should drink juices and broths. Also, she reported being strict about not using salt because of HTN and I advised her she can liberalize her salt use. 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 No need to use Spironolactone since she has no peripheral edema. I reviewed all these plans with the patient and her son-in-law (an ex-EMT) at bedside today. (2) Dizziness Conclusion/Plan: Lightheadedness is a known symptom of hyponatremia. It is interesting that this patient only felt better after she drank her "liquid IV" which contains sodium. Plan: Cont to check orthostatic vital signs. (3) Orthostatic hypotension Conclusion/Plan: Orthostatic checks were ordered because of her complaints of dizziness for the past 1 week VS were reviewed. She is very orthostatic with her systolic BP dropping from 119 mmHg when supine, to 96 mmHg with standing (26 point drop). Plan: She will now remain off of HCTZ and Spironolactone after discharge Her lisinopril dose will be decreased from 20 twice daily to daily Continue with IV NS hydration (4) HTN (hypertension) Conclusion/Plan: The patient was on lisinopril, HCTZ most recently, and her spironolactone was recently discontinued. Lisinopril dose was 20 mg twice daily which seems excessive Plan: I will decrease her lisinopril to 20 mg daily. She may even need a drop of Lisinopril to 10 mg once daily. I gave her education about how much salt she can take in. I reviewed all these recommendations and plans with the patient and her son-in-law at bedside today. (4) History of atrial fibrillation Conclusion/Plan: Patient is on Cardizem for her A-fib and is on Eliquis for stroke prevention. Her EKG shows that she is in sinus rhythm. The Cardizem must be keeping her out of A-fib or it is paroxysmal Plan: Continue with her usual diltiazem dose She is on the wrong Eliquis dose for a patient who is over 80 but has a normal creatinine and has a normal weight. I reviewed this with our pharmacist. Her dose should be 5 mg twice daily which I will order, and discharge her on this. - Current Meds Current Meds: Current Medications Generic Name Dose Route Start Last Admin Trade Name Tobiasq PRN Reason Stop Dose Admin Apixaban 5 mg 05/06/23 21:00 05/07/23 08:52 Apixaban 5 Mg Tablet PO 5 mg BID [place] Administration Calcium Carbonate/Glycine 500 mg 05/06/23 23:45 05/07/23 08:52 Calcium Carbonate Chew 500 Mg Tablet PO 500 mg BID [place] Administration Diltiazem HCl 360 mg 05/07/23 09:00 05/07/23 08:52 Diltiazem Cd 180 Mg Capsule PO 360 mg DAILY [place] Administration Diphenhydramine HCl 50 mg 05/06/23 21:00 05/06/23 20:24 Diphenhydramine 25 Mg Capsule PO 50 mg HS [place] Administration Sodium Chloride 1,000 mls @ 83.33 mls/hr 05/06/23 16:04 05/07/23 15:07 Normal Saline 0.9% IV 83.33 mls/hr .Q12H1M [place] Administration Magnesium Oxide 400 mg 05/06/23 21:00 05/07/23 08:52 Magnesium Oxide 400 Mg Tablet PO 400 mg BID [place] Administration Ondansetron HCl 4 mg 05/06/23 12:44 05/07/23 00:30 Ondansetron 4 Mg/2 Ml Vial IVP 4 mg Q6HR PRN Administration Nausea / Vomiting Sodium Chloride 10 ml 05/06/23 17:00 05/07/23 08:56 Sodium Chloride Flush 0.9% 10 Ml Syringe IVP Not Given 0100,0900,1700 [facility] - Lab Result Fish Bone Diagrams: 05/07/23 04:41 05/07/23 09:15 - Additional Planning My Orders: My Active Orders 05/06/23 16:04 Sodium Chloride 0.9% [Normal Saline 0.9%] 1,000 ml IV 83.33 mls/hr 05/06/23 16:05 Orthostatic [Vital Signs - Orthostatic] [RC] QSHIFT 05/06/23 Dinner Regular Diet [DIET] 05/06/23 17:00 Sodium Chloride Flush 0.9% [Normal Saline Flush 0.9%] 10 ml IVP 0100,0900,1700 05/06/23 21:00 Apixaban [Eliquis] 5 mg PO BID Magnesium Oxide [Mag Ox] 400 mg PO BID diphenhydrAMINE [Benadryl] 50 mg PO HS 05/07/23 09:00 diltiaZEM CD [Cardizem Cd] 360 mg PO DAILY 05/08/23 09:00 lisinopriL [Zestril] 20 mg PO DAILY Subjective - Subjective Patient Reports: Feeling Better (Less "dizziness") Objective Vital Signs: Vital Signs - 24 hr 05/06/23 05/06/23 05/07/23 15:43 20:22 00:36 Temperature 36.3 C L 36.5 C 36.4 C L Heart Rate [ 60 60 60 Brachial] Respiratory 18 18 18 Rate Blood Pressure 140/60 H 124/54 L 116/57 L [Right Brachial artery] O2 Saturation 100 96 96 05/07/23 05/07/23 05/07/23 04:49 08:05 12:16 Temperature 36.4 C L 36.2 C L 36.2 C L Heart Rate [ 65 60 70 Brachial] Respiratory 16 18 16 Rate Blood Pressure 116/59 L 119/57 L 136/61 H [Right Brachial artery] O2 Saturation 97 99 99 Oxygen O2 Source Room air I&O (Last 24 Hrs): Intake and Output Totals x24h 05/05/23 05/06/23 05/07/23 23:59 23:59 23:59 Intake Total 520 2830 Output Total 150 Balance 370 2830 General: Alert, Oriented x3 HEENT: Mucous membr. moist/pink Neck: Supple, No JVD Neuro: Alert, Non Focal Cardiovascular: Regular rate, No murmurs Respiratory: No respiratory distress Abdomen: No tenderness Extremities: No clubbing, No edema, No tenderness/swelling - Results Results: Laboratory Results WBC 9.3 x10^3/uL (4.8-10.8) 05/07/23 04:41 RBC 3.53 10^6/uL (4.20-5.40) L 05/07/23 04:41 Hgb 11.3 g/dL (12.0-16.0) L 05/07/23 04:41 Hct 32.9 % (37.0-47.0) L 05/07/23 04:41 MCV 93.2 fL (81.0-99.0) 05/07/23 04:41 MCH 32.0 pg (27.0-31.0) H 05/07/23 04:41 MCHC 34.3 g/dL (32.0-36.0) 05/07/23 04:41 RDW 11.4 % (12.0-15.0) L 05/07/23 04:41 Plt Count 240 10^3/uL (130-450) 05/07/23 04:41 MPV 10.4 fL (7.9-10.8) 05/07/23 04:41 Neut # (Auto) 7.5 10^3/uL (1.5-6.6) H 05/07/23 04:41 Lymph # (Auto) 0.9 10^3/uL (1.5-3.5) L 05/07/23 04:41 [place] # (Auto) 0.5 10^3/uL (0.0-1.0) 05/07/23 04:41 Eos # (Auto) 0.3 10^3/uL (0.0-0.7) 05/07/23 04:41 Baso # (Auto) 0.0 10^3/uL (0.0-0.1) 05/07/23 04:41 Absolute Nucleated RBC 0.00 x10^3/uL 05/07/23 04:41 Nucleated RBC % 0.0 /100WBC 05/07/23 04:41 Sodium 124 mmol/L (135-145) L 05/07/23 09:15 Potassium 4.7 mmol/L (3.5-4.5) H 05/07/23 04:41 Chloride 94 mmol/L (101-111) L 05/07/23 04:41 Carbon Dioxide 24 mmol/L (21-32) 05/07/23 04:41 Anion Gap 5.0 (6-13) L 05/07/23 04:41 BUN 19 mg/dL (6-20) 05/07/23 04:41 Creatinine 0.8 mg/dL (0.6-1.3) 05/07/23 04:41 Estimated GFR (MDRD) 69 (>89) L 05/07/23 04:41 Glucose 97 mg/dL (74-104) 05/07/23 04:41 Calcium 8.9 mg/dL (8.5-10.3) 05/07/23 04:41 Total Bilirubin 0.5 mg/dL (0.2-1.0) 05/06/23 09:32 AST 19 IU/L (10-42) 05/06/23 09:32 ALT 11 IU/L (10-60) 05/06/23 09:32 Alkaline Phosphatase 75 IU/L (42-121) 05/06/23 09:32 Total Protein 7.6 g/dL (6.4-8.9) 05/06/23 09:32 Albumin 4.6 g/dL (3.2-5.5) 05/06/23 09:32 Globulin 3.0 g/dL (2.1-4.2) 05/06/23 09:32 Albumin/Globulin Ratio 1.5 (1.0-2.2) 05/06/23 09:32 TSH 1.95 uIU/mL (0.34-5.60) 05/07/23 09:15 Cortisol AM Sample 8.0 ug/dL 05/07/23 09:15 Urine Color YELLOW 05/06/23 10:30 Urine Clarity CLEAR (CLEAR) 05/06/23 10:30 Urine pH 7.5 PH (5.0-7.5) 05/06/23 10:30 Ur Specific [place] 1.010 (1.002-1.030) 05/06/23 10:30 Urine Protein NEGATIVE mg/dL (NEGATIVE) 05/06/23 10:30 Urine Glucose (UA) NEGATIVE mg/dL (NEGATIVE) 05/06/23 10:30 Urine Ketones NEGATIVE mg/dL (NEGATIVE) 05/06/23 10:30 Urine Occult Blood NEGATIVE (NEGATIVE) 05/06/23 10:30 Urine Nitrite NEGATIVE (NEGATIVE) 05/06/23 10:30 Urine Bilirubin NEGATIVE (NEGATIVE) 05/06/23 10:30 Urine Urobilinogen 0.2 (NORMAL) E.U./dL (NORMAL) 05/06/23 10:30 Ur Leukocyte Esterase NEGATIVE (NEGATIVE) 05/06/23 10:30 Ur Microscopic Review NOT INDICATED 05/06/23 10:30 Urine Culture Comments NOT INDICATED 05/06/23 10:30 Urine Sodium 66.1 mmol/L 05/06/23 15:58
[2023-05-07] MEDS: diphenhydrAMINE 25 MG CAPSULE PO SCH (20:20)
[2023-05-08] MEDS: SODIUM CHLORIDE 0.9% 1,000 ML IV SCH ×3 (03:13→13:50)
[2023-05-08] MEDS: diltiaZEM CD 180 MG CAPSULE PO SCH (08:36)
[2023-05-08] MEDS: MAGNESIUM OXIDE 400 MG TABLET PO SCH (08:36)
[2023-05-08] MEDS: APIXABAN 5 MG TABLET PO SCH (08:36)
[2023-05-08] MEDS: CALCIUM CARBONATE CHEW 500 MG TABLET PO SCH (08:36)
[2023-05-08] MEDS: SODIUM CHLORIDE FLUSH 0.9% 10 ML SYRINGE IVP SCH ×2 (08:37→15:16)
[2023-05-08] MEDS ORDERED: lisinopriL 20 MG TABLET PO SCH (09:00)
[2023-05-08 15:43] VITALS: BP 139/61; O2SAT 100
--- NOTE | 2023-05-08 16:01 | Discharge Plan ---
Discharge Plan Problem Reviewed?: Yes Disposition: Home, Self Care Condition: Stable Prescriptions: Apixaban [Eliquis] 5 mg PO BID #60 tab Diet: Regular Activity Restrictions: Activity as Tolerated Shower Restrictions: No Driving Restrictions: No Instruction Topics: Hyponatremia Dc Ch, ED Hypotension Orthostatic Health Concerns: You were hospitalized to manage a dangerously low serum sodium level. This is called hyponatremia. And we found you to have a low blood pressure which caused you to have dizziness and lightheadedness. This is called orthostatic hypotension. Your medicines have been adjusted to correct these problems. You are being discharged home today and advised to: 1) stop taking Hydrochlorothiazide 2) stop taking Lisinopril 3) drink fluids that contain electrolytes and using the "liquid IV" once daily is fine 4) Your dose of Eliquis has been adjusted and a new prescription was sent to your [facility] pharmacy You may use up the Eliquis tablets that you have at home which, are 2.5 mg tablets. Take 2 of those 2.5 mg tablets in the morning and 2 of those in the evening. Then get this new prescription, which are 5 mg tablets and then take 1 in a.m. and 1 in p.m. Please resume your other prescribed medications such as Cardizem CD and Zocor. You may continue to use compression stockings, if you get ankle swelling. You should see your Primary Care Provider in the next 5 - 10 days for hospital follow-up's office visit. Please discuss these changes of medicines. Plan of Treatment: As above. Care Goals: Improvement in symptoms and stabilization are the goals. Assessment: The patient understands and is agreeable with the plan. Additional Instructions or Follow Up instructions: If you have new or worsening symptoms, call your PCP, or come to the ER. No Smoking: If you smoke, Please STOP! Call for help. Follow-up with: Pauline Quiroz PA-C [Provider Admit Priv/Credential] -
--- NOTE | 2023-05-08 16:14 | DISCHARGE SUMMARY ---
Discharge Summary Admit Date: 05/06/23 Discharge Date: 05/08/23 Discharging Provider: Dr Dominique Crawford Primary Care Provider: Pauline AZEVEDO Condition at Discharge: Stable Discharge Disposition: 01 Home, Self Care - HPI History of Present Illness: This is an 82-year-old female with a history of hypertension on lisinopril and spironolactone which was recently changed to lisinopril and HCTZ. She has a history of atrial fib diagnosed about 4 years ago and is on Cardizem and Eliquis. She sees her Heel Attacher Wood once a year, in [place]. She describes being lightheaded for many years for which she takes a daily container of "liquid IV" (an electrolyte suppl powder which she mixes with water) which she buys from [employer]. She then feels better for about an hour or 2 and then again feels lightheaded. Recently she saw a provider for c/o lightheadedness and had lab work done which showed a serum sodium of 124. (She normally runs serum sodiums of 125-130). No medication changes were made or other advice give, but she was told to have labs rechecked in 1 to 2 weeks which she did today. Her serum sodium level came back at 118 and she was advised she go to our ER. She received 100 mL of 3% saline in the ED. The ED provider then spoke to me about her. The patient will be admitted for treating hyponatremia and evaluating its cause. Patient usually walks daily and then drinks a glass of ice water. She has not walked for 1 week because of feeling severely lightheaded. We spoke about her overall fluid intake and she has about 7 to 8 glasses of liquids per day: 2 cups of coffee, 1 cup of tea, a glass of ice water after walking, a glass of ice water with dinner, a glass of water with "liquid IV" at midday, possibly another glass of water before dinner. The patient is a full code. - HOSPITAL COURSE Hospital Course: (1) Hyponatremia In going through the long list of causes of hyponatremia, she had 2: She was on HCTZ and she drank excessive amounts of free water, in the form of 8 glasses per day, and only one of the glasses had electrolytes in it (which is the 1 in which she puts her "liquid IV" from [employer]). I reviewed the contents of 1 container of "liquid IV" and it has 550 mg of sodium. Other causes for hyponatremia were not present: such as pseudohyponatremia from hyperglycemia, nor were high proteins present, she is not a diabetic, there is no history of linezolid or chemotherapy use, she has no history of heart failure or liver cirrhosis, she does not have beer potomania, her serum is not lipemic, she has no renal failure. The patient's a.m. cortisol level was WNL, ruling out hypopituitarism. Her TSH came back adequate, ruling out Hypothyroidism. She was treated with 3% saline briefly in the ER, then we had her on IV normal saline. I educated her (and family at bedside) about her excessive intake of free water, and that in its place she should drink juices and broths. Also, she reported being strict about not using salt and I advised her she can somewhat liberalize her salt use. She should remain off HCTZ since very likely had Thiazide-induced hyponatremia. No need to use Spironolactone since she has no peripheral edema. I reviewed all these plans with the patient and her son-in-law (an ex-EMT). (2) Dizziness Lightheadedness is a known symptom of hyponatremia, and obviously also of orthostasis. It is interesting that this patient only felt better after she drank her "liquid IV" which contains sodium. (3) Orthostatic hypotension Orthostatic checks were checked because of complaints of dizziness for a week. She was very orthostatic with systolic BP dropping from 119 mmHg when supine, to 96 mmHg with standing (a 26 point drop). She got iv hydration and we adjusted meds. She should now remain off of HCTZ and Spironolactone and Lisinopril after discharge. (4) HTN (hypertension) The patient was on lisinopril and HCTZ most recently, and her spironolactone was recently discontinued. I stopped the HCTZ since she needed rehydration, and she was discharged off HCTZ. The Lisinopril dose at home was 20 mg twice daily, which seemed excessive. Because of orthostasis, I decreased it then needed to stop her Lisinopril. I gave her education about how much salt she can take in. I reviewed all these recommendations and plans with the son-in-law at bedside as well. She will now be on Cardizem only for BP control. (5) Paroxysmal atrial fibrillation Patient was on Cardizem for her A-fib and is on Eliquis for stroke prevention. Her EKG showed that she is currently in sinus rhythm. We kept her on her Cardizem. She was on the wrong Eliquis dose for a patient who is over 75, but has a normal creatinine and has a normal weight. I reviewed this with our pharmacist who agreed. Her Eliquis dose should be 5 mg twice daily which I ordered and discharged her on this. - ALLERGIES Allergies/Adverse Reactions: Allergies Allergy/AdvReac Type Severity Reaction Status Date / Time oxycodone Allergy Emesis Verified 12/20/22 16:58 telmisartan [From Micardis] Allergy Unknown Verified 12/20/22 16:58 - MEDICATIONS Home Medications: Ambulatory Orders Medication Instructions Recorded Confirmed Simvastatin [Zocor] 1 tablet ORAL DAILY 09/23/20 05/06/23 Acetaminophen/Diphenhydramine [[facility] 2 tab PO HS 05/06/23 05/06/23 Acetaminophen Pm Caplet] Cholecalciferol (Vitamin D3) 1 cap PO DAILY 05/06/23 05/06/23 [Vitamin D3] Magnesium Oxide [Mag Ox] 1 tab PO BID 05/06/23 05/06/23 dilTIAZem HCL [Diltiazem 24Hr ER] 1 cap PO DAILY 05/06/23 05/06/23 Apixaban [Eliquis] 5 mg PO BID #60 tab 05/08/23 - PHYSICAL EXAM AT DISCHARGE General Appearance: positive: No acute distress, Alert Eyes Bilateral: positive: Normal inspection, EOMI ENT: positive: ENT inspection nml, No signs of dehydration Neck: positive: Nml inspection, No JVD Respiratory: positive: No respiratory distress Cardiovascular: positive: Regular rate & rhythm, No murmur Abdomen: positive: Non-tender, Nml bowel sounds, No distention Skin: positive: Warm, Dry Extremities: positive: Non-tender, No pedal edema Neurologic/Psychiatric: positive: Oriented x3, Motor nml - LABS Result Diagrams: 05/07/23 04:41 05/08/23 14:50 - FOLLOW UP Follow Up: See PCP in 5-10 days for a hospital foloow-up visit. - TIME SPENT Time Spent in Discharge (Minutes): 45
== END 2023-05-08 16:46 | disposition home or self-care (01) | DRG 641 ==
LOC: ED 09:05 → MS2 12:44
PROVIDERS: ADMIT Internal Medicine; ATTEND Internal Medicine
DX: E87.1 Hypo-osmolality and hyponatremia (principal); I10 Essential (primary) hypertension; I95.1 Orthostatic hypotension; I48.0 Paroxysmal atrial fibrillation; E78.00 Pure hypercholesterolemia, unspecified; H91.90 Unspecified hearing loss, unspecified ear; K30 Functional dyspepsia; R42 Dizziness and giddiness; R60.0 Localized edema; R63.8 Other symptoms and signs concerning food and fluid intake; Z79.01 Long term (current) use of anticoagulants; Z79.899 Other long term (current) drug therapy; Z87.891 Personal history of nicotine dependence
CPT/HCPCS: 36415; 71045; 80048; 80053; 81003; 82533; 84295; 84300; 84443; 85025; 93005; 99285; A9270; 81001; 87086

== ENCOUNTER 2023-05-16 08:07 | Outpatient (CLI) | payer MEDICARE, OTHER ==
[2023-05-16 08:16] LABS: BASOPHILS # (AUTO) 0.1 10^3/uL (0.0-0.1); BASOPHILS % (AUTO) 0.8 %; EOSINOPHILS # (AUTO) 0.8 10^3/uL (0.0-0.7); EOSINOPHILS % (AUTO) 10.2 %; HCT - HEMATOCRIT 37.5 % (37.0-47.0); HGB - HEMOGLOBIN 12.6 g/dL (12.0-16.0); LYMPHOCYTES # (AUTO) 1.3 10^3/uL (1.5-3.5); LYMPHOCYTES % (AUTO) 16.6 %; MEAN CORPUSCULAR HEMOGLOBIN 32.5 pg (27.0-31.0); MEAN CORPUSCULAR HGB CONC 33.6 g/dL (32.0-36.0); MEAN CORPUSCULAR VOLUME 96.6 fL (81.0-99.0); MEAN PLATELET VOLUME 9.7 fL (7.9-10.8); MONOCYTES # (AUTO) 0.6 10^3/uL (0.0-1.0); MONOCYTES % (AUTO) 7.3 %; NEUTROPHILS # (AUTO) 5.2 10^3/uL (1.5-6.6); NEUTROPHILS % (AUTO) 64.8 %; PLT - PLATELET COUNT 261 10^3/uL (130-450); RED BLOOD COUNT 3.88 10^6/uL (4.20-5.40); RED CELL DISTRIBUTION WIDTH 11.9 % (12.0-15.0)
[2023-05-16 08:29] LABS: ALBUMIN 4.4 g/dL (3.2-5.5); ALBUMIN/GLOBULIN RATIO 1.6 (1.0-2.2); BILIRUBIN,TOTAL 0.3 mg/dL (0.2-1.0); CALCIUM 9.8 mg/dL (8.5-10.3); CREATININE 0.8 mg/dL (0.6-1.3); POTASSIUM 4.5 mmol/L (3.5-4.5); TOTAL PROTEIN 7.2 g/dL (6.4-8.9)
== END 2023-05-16 08:08 | disposition home or self-care (01) ==
LOC: LAB 08:07
PROVIDERS: ATTEND Physician Assistant Medical
DX: E87.1 Hypo-osmolality and hyponatremia (principal); D64.9 Anemia, unspecified; R53.83 Other fatigue
CPT/HCPCS: 36415; 80053; 85025

== ENCOUNTER 2023-06-09 07:51 | Outpatient (CLI) | payer MEDICARE, OTHER ==
[2023-06-09 08:13] LABS: CREATININE 0.9 mg/dL (0.6-1.3); POTASSIUM 4.3 mmol/L (3.5-4.5)
== END 2023-06-09 07:52 | disposition home or self-care (01) ==
LOC: LAB 07:51
PROVIDERS: ATTEND Nurse Practitioner
DX: I48.0 Paroxysmal atrial fibrillation (principal)
CPT/HCPCS: 36415; 80048

== ENCOUNTER 2023-09-12 08:30 | Outpatient (CLI) | payer MEDICARE, OTHER ==
[2023-09-12 12:41] LABS: BASOPHILS # (AUTO) 0.1 10^3/uL (0.0-0.1); BASOPHILS % (AUTO) 0.9 %; EOSINOPHILS # (AUTO) 0.3 10^3/uL (0.0-0.7); EOSINOPHILS % (AUTO) 5.1 %; HCT - HEMATOCRIT 39.5 % (37.0-47.0); HGB - HEMOGLOBIN 12.9 g/dL (12.0-16.0); LYMPHOCYTES # (AUTO) 0.9 10^3/uL (1.5-3.5); LYMPHOCYTES % (AUTO) 16.1 %; MEAN CORPUSCULAR HEMOGLOBIN 31.5 pg (27.0-31.0); MEAN CORPUSCULAR HGB CONC 32.7 g/dL (32.0-36.0); MEAN CORPUSCULAR VOLUME 96.3 fL (81.0-99.0); MEAN PLATELET VOLUME 11.9 fL (7.9-10.8); MONOCYTES # (AUTO) 0.5 10^3/uL (0.0-1.0); MONOCYTES % (AUTO) 8.1 %; NEUTROPHILS % (AUTO) 69.4 %; PLT - PLATELET COUNT 254 10^3/uL (130-450); WHITE BLOOD COUNT 5.7 x10^3/uL (4.8-10.8)
[2023-09-12 13:08] LABS: ALBUMIN 4.5 g/dL (3.2-5.5); ALBUMIN/GLOBULIN RATIO 1.6 (1.0-2.2); BILIRUBIN,TOTAL 0.4 mg/dL (0.2-1.0); CALCIUM 9.9 mg/dL (8.5-10.3); CREATININE 0.8 mg/dL (0.6-1.3); POTASSIUM 4.2 mmol/L (3.5-4.5); TOTAL PROTEIN 7.4 g/dL (6.4-8.9)
== END 2023-09-12 08:45 | disposition home or self-care (01) ==
LOC: LAB.N 08:30
PROVIDERS: ATTEND Nurse Practitioner
DX: R42 Dizziness and giddiness (principal)
CPT/HCPCS: 36415; 80053; 85025

== ENCOUNTER 2023-11-04 08:17 | Outpatient (CLI) | payer MEDICARE, OTHER ==
--- NOTE | 2023-11-07 11:45 | Mammography Report ---
BILATERAL DIGITAL SCREENING MAMMOGRAM 3D/2D: 11/04/2023 CLINICAL: Routine screening. Comparison is made to exams dated: 04/06/2018 mammogram, 10/11/2016 mammogram, 09/21/2016 mammogram, a nd 03/24/2015 mammogram - [facility]. Both breasts are heterogeneously dense, which may obscure small masses (category c / 51-75% glandular tissue). No significant masses, calcifications, or other findings are seen in either breast. There has been no significant interval change. IMPRESSION: NEGATIVE There is no mammographic evidence of malignancy. A 1 year screening mammogram is recommended. Based on the Tyrer Cuzick model (a risk assessment model) the patient's lifetime risk is 0.4% and her 10 year risk is 0.0%. According to the ACR, ACS, and NCCN guidelines, an annual breast MRI exam katelin g with mammogram is recommended if the patient's lifetime risk is 20% or greater. This exam was interpreted at Station ID: [id number]. NOTE: For mammograms, a report in lay terms will be sent to the patient. Approximately 15% of breast malignancies will not be visualized mammographically. In the management of a palpable breast mass, a negative mammogram must not discourage biopsy of a clinically suspicious lesion. Electronically Signed By: Vikas arriola/clement:11/04/2023 11:42:50 letter sent: No_Letter ACR BI-RADS Category 1: Negative 3341F PARENCHYMAL PATTERN: (D) - The breast(s) demonstrate(s) heterogeneously dense fibroglandular ale hendrickson. BI-RADS CATEGORY: (1) - 1 Mammogram [id number] 1 year screening LATERALITY: (B)
== END 2023-11-04 08:18 | disposition home or self-care (01) ==
LOC: DI 08:17
DX: Z12.31 Encounter for screening mammogram for malignant neoplasm of breast (principal); R92.333 Mammographic heterogeneous density, bilateral breasts

== ENCOUNTER 2023-11-24 07:12 | Outpatient (CLI) | payer MEDICARE, OTHER | END 2023-11-24 23:59 | disposition critical access hospital (66) | LOC: EMS 07:12 | DX: R42 Dizziness and giddiness (principal) | CPT/HCPCS: A0425; A0427 ==

== ENCOUNTER 2023-11-24 07:19 | Emergency (ER) | payer MEDICARE, OTHER ==
--- NOTE | 2023-11-24 07:38 | ED Physician Documentation ---
PD HPI HEENT - Stated complaint Stated Complaint: DIZZY/NAUSEA - Chief complaint Chief Complaint: Neuro - History obtained from History obtained from: Patient - History of Present Illness Timing - onset: How many hours ago (1), Today Timing - duration: Hours (1) Timing - details: Abrupt onset, Still present, Waxing and waning (increased considerably with head movement, improved but not fully resolved with holding still. nausea with it. Has noted a few days of blurred vision without vision loss. No headache. NO focal weaknesses nor trouble speaking. [place] falling over when trying to walk. was able to use phone pad.) Location: Left ear (had noted some tinnitus and decreased hearing left ear about a week ago for just short time. No vertigo at that time.) Associated symptoms: Other (denies recent head injury/fall.). No: Fever, Congestion, Rhinorrhea, Headache Recently seen: Clinic (went to cra officer yesterday due to new blurred vision and pt states she was told that her eyes themselves are not the problem.) Review of Systems Constitutional: denies: Fever, Chills Eyes: reports: Decreased vision. denies: Loss of vision, Photophobia Ears: reports: Loss of hearing (chronic poor hearing and has hearing aides.) Nose: denies: Rhinorrhea / runny nose, Congestion, Sinus pressure / pain Throat: denies: Sore throat Cardiac: denies: Chest pain / pressure Respiratory: denies: Dyspnea GI: reports: Nausea. 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 : None HEENT: Chronic hearing loss Psych: None Musculoskeletal: None Derm: None - Past Surgical History Past Surgical History: No General: Appendectomy - Present Medications Home Medications: Ambulatory Orders Medication Instructions Recorded Confirmed Simvastatin [Zocor] 1 tablet ORAL HS 09/23/20 11/24/23 Acetaminophen/Diphenhydramine [[facility] 2 tab PO HS 05/06/23 11/24/23 Acetaminophen Pm Caplet] Cholecalciferol (Vitamin D3) 1 cap PO DAILY 05/06/23 11/24/23 [Vitamin D3] Magnesium Oxide [Mag Ox] 1 tab PO DAILY 05/06/23 11/24/23 dilTIAZem HCL [Diltiazem 24Hr ER] 1 cap PO DAILY 05/06/23 11/24/23 Apixaban [Eliquis] 5 mg PO BID #60 tab 05/08/23 11/24/23 Lisinopril [Zestril] 20 mg PO DAILY 11/24/23 11/24/23 Meclizine HCl [Motion Sickness] 25 mg PO Q6H PRN #30 tablet 11/24/23 dexAMETHasone [Decadron] 4 mg PO DAILY #5 tablet 11/24/23 - Allergies Allergies/Adverse Reactions: Allergies Allergy/AdvReac Type Severity Reaction Status Date / Time oxycodone Allergy Emesis Verified 11/24/23 08:05 telmisartan [From Micardis] Allergy Unknown Verified 11/24/23 08:05 - Social History Does the pt smoke?: No Smoking Status: Never smoker Does the pt drink ETOH?: Yes Does the pt have substance abuse?: No - Immunizations Immunizations are current?: Yes - POLST Patient has POLST: No PD ED PE NORMAL - Vitals Vital signs reviewed: Yes - General General: Alert and oriented X 3, No acute distress, Well developed/nourished - HEENT HEENT: PERRL, EOMI (with nystagmus mildly to the left. not present when head held still. ), Ears normal, Pharynx benign - Neck Neck: Supple, no meningeal sign, No adenopathy, No bruit - Cardiac Cardiac: No murmur - Respiratory Respiratory: No respiratory distress - Abdomen Abdomen: Soft, Non tender - Derm Derm: Normal color, Warm and dry - Neuro Neuro: Alert and oriented X 3, etl consultant 2-12 intact, No motor deficit, No sensory deficit, Normal speech Eye Opening: Spontaneous Motor: Obeys Commands Verbal: Oriented GCS Score: 15 Results - Vitals Vitals: Vital Signs - 24 hr 11/24/23 11/24/23 11/24/23 07:26 09:25 11:00 Temperature 36.2 C L Heart Rate 77 66 73 Respiratory 16 16 16 Rate Blood Pressure 183/82 H 166/66 H 128/96 H O2 Saturation 98 96 98 Oxygen O2 Source Room air - Labs Labs: Laboratory Tests 11/24/23 11/24/23 07:42 07:42 WBC 5.9 RBC 3.93 L Hgb 12.6 Hct 37.8 MCV 96.2 MCH 32.1 H MCHC 33.3 RDW 12.1 Plt Count 241 MPV 11.0 H Neut # (Auto) 4.1 Lymph # (Auto) 1.0 L [place] # (Auto) 0.4 Eos # (Auto) 0.3 Baso # (Auto) 0.0 Absolute Nucleated RBC 0.00 Nucleated RBC % 0.0 Sodium 132 L Potassium 4.2 Chloride 100 L Carbon Dioxide 25 Anion Gap 7.0 BUN 13 Creatinine 0.8 Estimated GFR (MDRD) 68 L Glucose 105 H Calcium 9.4 Phosphorus 3.5 Magnesium 2.0 Total Bilirubin 0.4 AST 19 ALT 10 Alkaline Phosphatase 80 Total Protein 7.2 Albumin 4.3 Globulin 2.9 Albumin/Globulin Ratio 1.5 Lipase 28 - Rads (name of study) brain MRI Relevant Findings:: Prelim report reviewed, EMP independent interpretation of test head CT Relevant Findings:: Prelim report reviewed (no acute abnormality. Age related changes. ), EMP independent interpretation of test PD Medical Decision Making - ED course Complexity details: reviewed results (no acute findings on init), considered differential (onset vertigo after being up from bed, but was still position provoked. Has had recent visual blurring. NO focal weaknesses. She is feeling sluggish with thinking. Given the several symptoms and recent onset this morning, I did do CT to eval for ICH or acute focal process. Then to get MRI for eval. ), d/w patient Departure - Departure Disposition: 01 Home, Self Care Clinical Impression: Acute severe vertigo, Blurred vision, Labyrinthitis, acute Condition: Stable Instructions: ED Labyrinthitis Follow-Up: [facility] [place] [Provider Group] Prescriptions: dexAMETHasone [Decadron] 4 mg PO DAILY #5 tablet Meclizine HCl [Motion Sickness] 25 mg PO Q6H PRN #30 tablet PRN Reason: Vertigo Comments: Continue with your usual medications. Your basic blood tests are normal with good blood sugar, blood count, electrolytes including sodium, kidney function. Your dizziness sounds like inner ear. Your CT and MRI did not show any stroke, tumors, swelling, MS. Presume your dizziness relates to inner ear dysfunction. I would try some Decadron steroid anti-inflammatory daily for 5 days (this preferred over NSAIDs since you are on a blood thinner). Additionally meclizine every 6-8 hours if needed for vertigo. 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 Return if worse or other symptoms develop. I sent your prescriptions to your preferred pharmacy. Forms: PCP List Discharge Date/Time: 11/24/23 12:39
[2023-11-24 07:50] LABS: BASOPHILS % (AUTO) 0.7 %; EOSINOPHILS # (AUTO) 0.3 10^3/uL (0.0-0.7); EOSINOPHILS % (AUTO) 5.3 %; HCT - HEMATOCRIT 37.8 % (37.0-47.0); HGB - HEMOGLOBIN 12.6 g/dL (12.0-16.0); LYMPHOCYTES % (AUTO) 16.7 %; MEAN CORPUSCULAR HEMOGLOBIN 32.1 pg (27.0-31.0); MEAN CORPUSCULAR HGB CONC 33.3 g/dL (32.0-36.0); MEAN CORPUSCULAR VOLUME 96.2 fL (81.0-99.0); MONOCYTES # (AUTO) 0.4 10^3/uL (0.0-1.0); MONOCYTES % (AUTO) 7.5 %; NEUTROPHILS # (AUTO) 4.1 10^3/uL (1.5-6.6); NEUTROPHILS % (AUTO) 69.6 %; PLT - PLATELET COUNT 241 10^3/uL (130-450); RED BLOOD COUNT 3.93 10^6/uL (4.20-5.40); RED CELL DISTRIBUTION WIDTH 12.1 % (12.0-15.0); WHITE BLOOD COUNT 5.9 x10^3/uL (4.8-10.8)
[2023-11-24] MEDS: SODIUM CHLORIDE 0.9% 1,000 ML IV STA (07:57)
[2023-11-24] MEDS: KETOROLAC 15 MG/ML VIAL IVP STA (07:59)
[2023-11-24] MEDS: DROPERIDOL 5 MG/2 ML VIAL IVP STA (08:00)
[2023-11-24 08:16] LABS: ALBUMIN 4.3 g/dL (3.2-5.5); ALBUMIN/GLOBULIN RATIO 1.5 (1.0-2.2); BILIRUBIN,TOTAL 0.4 mg/dL (0.2-1.0); CALCIUM 9.4 mg/dL (8.5-10.3); CREATININE 0.8 mg/dL (0.6-1.3); PHOSPHORUS 3.5 mg/dL (2.5-5.0); POTASSIUM 4.2 mmol/L (3.5-4.5); TOTAL PROTEIN 7.2 g/dL (6.4-8.9)
--- NOTE | 2023-11-24 08:38 | CT Report ---
PROCEDURE: Head WO INDICATIONS: vertigo, HTN, blurred vision TECHNIQUE: Noncontrast 4.5 mm thick angled axial sections acquired from the foramen magnum to the vertex. For r adiation dose reduction, the following was used: automated exposure control, adjustment of mA and/or kV according to patient size. COMPARISON: None. FINDINGS: Image quality: Excellent. CSF spaces: Basal cisterns are patent. No extra-axial fluid collections. Ventricles are normal in size and shape. Brain: No midline shift. No intracranial masses or hemorrhage. Mild cerebral volume loss. Mild georgi ventricular hypoattenuation. Mcnulty-white matter interface is normal. Skull and face: Calvarium and visualized facial bones are intact, without suspicious lesions. Sinuses: Mild mucosal thickening in the bilateral maxillary sinuses and ethmoid sinuses. Hypoplastic/ aplastic left frontal sinus. Sphenoid sinuses are clear. Bilateral mastoids are clear. IMPRESSION: 1.No acute intracranial pathology. If there is high clinical suspicion for an ischemic insult, recomm end MRI for further evaluation. 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 Reviewed by: Isak Huang MD on 11/24/2023 8:36 AM [facility] Approved by: Isak Huang MD on 11/24/2023 8:36 AM PST Station ID: [id number]
[2023-11-24] MEDS: MECLIZINE 12.5 MG TABLET PO STA (08:44)
--- NOTE | 2023-11-24 11:06 | MRI Report ---
PROCEDURE: Brain WO INDICATIONS: vertigo, blurred vision TECHNIQUE: Noncontrast axial T1 spin echo, axial T2 fast spin echo, sagittal and axial FLAIR, coronal T2 fast sp in echo, axial gradient echo, axial diffusion and ADC through the brain. COMPARISON: None. FINDINGS: Image quality: Excellent. CSF Spaces: Basal cisterns are patent. No extra-axial fluid collections. Ventricles are normal in size and shape. Brain: No intracranial masses or hemorrhage. Mcnulty/white matter interface is normal. Brainstem appe ars normal. Diffusion-weighted images demonstrate no acute ischemic insult. No chronic ischemic ins ults. Normal intravascular flow voids are present. Signal abnormality in the db is consistent wit h small vessel ischemic change. There is mild periventricular and more peripheral deep white matter s ignal abnormality, age-appropriate, consistent with mild supratentorial small vessel ischemic change. Skull and face: Calvarium has normal marrow signal. Orbits appear normal. Sinuses: Bilateral maxillary sinus mucosal thickening and ethmoid mucosal thickening is consistent wi th chronic sinus disease. IMPRESSION: 1. No acute intracranial abnormality. 2. Age-related volume loss and age-appropriate small vessel ischemic change involving the supratentor ial structures. 3. Signal abnormality in the db also is consistent with small vessel ischemic change. This raises t he question of possible vertebrobasilar disease. Comment: Consider CTA in the neck to evaluate the vertebrobasilar system Reviewed by: Tony Awad MD on 11/24/2023 11:05 AM PST Approved by: Tony Awad MD on 11/24/2023 11:05 AM PST Station ID: [id number]
[2023-11-24 11:15] VITALS: BP 128/96; O2SAT 98
== END 2023-11-24 12:39 | disposition home or self-care (01) ==
LOC: EDUNIT# → ED 07:19
DX: H53.8 Other visual disturbances (principal); H83.09 Labyrinthitis, unspecified ear; R42 Dizziness and giddiness; I10 Essential (primary) hypertension; E78.00 Pure hypercholesterolemia, unspecified; I48.91 Unspecified atrial fibrillation; Z79.899 Other long term (current) drug therapy; Z79.01 Long term (current) use of anticoagulants
CPT/HCPCS: 36415; 70450; 70551; 80053; 83690; 83735; 84100; 85025; 93005; 96374; 96375; 99284; A9270

== ENCOUNTER 2023-12-23 07:58 | Outpatient (CLI) | payer MEDICARE, OTHER ==
[2023-12-23 08:08] LABS: BASOPHILS % (AUTO) 0.8 %; EOSINOPHILS # (AUTO) 0.3 10^3/uL (0.0-0.7); EOSINOPHILS % (AUTO) 5.2 %; HCT - HEMATOCRIT 38.6 % (37.0-47.0); HGB - HEMOGLOBIN 12.4 g/dL (12.0-16.0); LYMPHOCYTES # (AUTO) 1.2 10^3/uL (1.5-3.5); LYMPHOCYTES % (AUTO) 24.4 %; MEAN CORPUSCULAR HEMOGLOBIN 31.5 pg (27.0-31.0); MEAN CORPUSCULAR HGB CONC 32.1 g/dL (32.0-36.0); MEAN PLATELET VOLUME 9.8 fL (7.9-10.8); MONOCYTES # (AUTO) 0.5 10^3/uL (0.0-1.0); MONOCYTES % (AUTO) 9.5 %; NEUTROPHILS % (AUTO) 59.7 %; PLT - PLATELET COUNT 328 10^3/uL (130-450); RED BLOOD COUNT 3.94 10^6/uL (4.20-5.40); RED CELL DISTRIBUTION WIDTH 12.3 % (12.0-15.0)
[2023-12-23 08:22] LABS: ALBUMIN 4.2 g/dL (3.2-5.5); ALBUMIN/GLOBULIN RATIO 1.6 (1.0-2.2); ALKALINE PHOSPHATASE 70 IU/L (42-121); ALT ALANINE AMINOTRANSFERASE 9 IU/L (10-60); AST ASPARTATE AMINOTRANSFERASE 16 IU/L (10-42); BILIRUBIN,TOTAL 0.5 mg/dL (0.2-1.0); BUN - BLOOD UREA NITROGEN 20 mg/dL (6-20); CALCIUM 9.9 mg/dL (8.5-10.3); CARBON DIOXIDE - CO2 29 mmol/L (21-32); CHLORIDE 99 mmol/L (101-111); CHOL/HDL RATIO 3.1 (<4.4); CHOLESTEROL 214 mg/dL; CREATININE 0.9 mg/dL (0.6-1.3); GFR - MDRD 60 (>89); GLUCOSE 92 mg/dL (74-104); HDL CHOLESTEROL 70 mg/dL; LDL CHOLESTEROL,CALCULATED 117 mg/dL; LDL/HDL RATIO 1.7 (<4.4); POTASSIUM 4.2 mmol/L (3.5-4.5); SODIUM 133 mmol/L (135-145); TOTAL PROTEIN 6.8 g/dL (6.4-8.9); TRIGLYCERIDES 135 mg/dL (48-352); VLDL CHOLESTEROL 27 mg/dL
== END 2023-12-23 07:59 | disposition home or self-care (01) ==
LOC: LAB 07:58
PROVIDERS: ATTEND Physician Assistant Medical
DX: E78.5 Hyperlipidemia, unspecified (principal); D64.9 Anemia, unspecified
CPT/HCPCS: 36415; 80053; 80061; 83721; 85025

== ENCOUNTER 2024-02-28 08:23 | Outpatient (CLI) | payer MEDICARE, OTHER ==
--- NOTE | 2024-02-28 10:54 | DEXA Report ---
PROCEDURE: Dexa Spine and/or Hip INDICATIONS: POST MENOPAUSAL TECHNIQUE: Dual energy x-ray absorptiometry (DXA) was performed on a [employer] System. Regions measur ed are the AP Spine, femoral neck, and if needed forearm. COMPARISON: DEXA 06/11/2015 FINDINGS: Lumbar Spine: Bone Mineral Density: 1.16 g/cm/cm,T score: -0.1, compared to -0.6. Left Femoral Neck: Bone Mineral Density: 0.721 g/cm/cm, T score: -2.3, compared to -1.2. Left Hip: Bone Mineral Density: 0.837 g/cm/cm,T score: -1.4, compared to 0.5. (T score greater or equal to -1.0: NORMAL) (T score from -1.1 to -2.4: OSTEOPENIA) (T score less than or equal to -2.5 to: OSTEOPOROSIS) Impression: By WHO criteria, this patient has severe osteopenia in the femoral neck markedly progressive as well as progressive mild osteopenia in the left hip. Patients with diagnosis of osteoporosis or osteopenia should have regular bone mineral density assess ment. For those eligible for Medicare, routine testing is allowed once every 2 years. Testing frequ ency can be increased for patients who have rapidly progressing disease or for those who are receivin g medical therapy to restore bone mass. Reviewed by: Dodie Michaels MD on 02/28/2024 10:53 AM PDT Approved by: Dodie Michaels MD on 02/28/2024 10:53 AM PDT Station ID: [id number]
== END 2024-02-28 08:24 | disposition home or self-care (01) ==
LOC: DI 08:23
PROVIDERS: ATTEND Physician Assistant Medical
DX: M85.88 Other specified disorders of bone density and structure, other site (principal); Z78.0 Asymptomatic menopausal state